=== PATIENT | female | born 1970 | race Caucasian/White ===

== ENCOUNTER 2021-04-02 08:53 | Inpatient (IN) ==
[2021-04-02] MEDS ORDERED: SODIUM CHLORIDE 0.9% 1000ML 1,000 ML IV ONE (09:14)
--- NOTE | 2021-04-02 09:26 | Emergency Department Note ---
History of Present Illness General Chief complaint: Constipation Stated complaint: CONSTIPATION, DIZZY Time Seen by Provider: 04/02/21 09:02 History of Present Illness Maximum Pain Intensity: 3 50-year-old female who presents to the emergency department with primary complaint of constipation. The patient reports that she has not had a bowel movement since last Saturday, which was hard in consistency. The patient reports that she will occasionally get constipation (approximately twice yearly). The patient reports that she usually takes magnesium citrate to purge the bowel, but has not done so at this point. She has tried Ex-Lax without any relief. In addition to complaint of constipation, the patient reports that she has also had some lightheadedness recently. She denies any chest pain, shortness of breath or palpitations. She does report a history of thyroid disease, but reports that her labs were normal approximately 2 months ago. The patient denies any significant recent weight gain or weight loss. She denies any urinary symptoms, fevers, chills, neck pain or headache. She denies history of vertigo, and denies sensation of the room spinning. Patient does not feel dehydrated, reporting that she drinks plenty of fluids throughout the day. 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 The patient currently denies any abdominal pain. Home Medications Medication Instructions Recorded Confirmed Type buprenorphine-naloxone 1 tab SUBLINGUAL BID 04/02/21 04/02/21 History levothyroxine 175 mcg PO QAM 04/02/21 04/02/21 History lisinopril 10 mg PO QAM 04/02/21 04/02/21 History Allergies Allergy/AdvReac Type Severity Reaction Status Date / Time No Known Allergies Allergy Verified 04/02/21 11:09 Past Med/Surg History Medical History Hypertension Throat cancer Surgical History History of appendectomy History of cholecystectomy History of tubal ligation Family History Other Diabetes Social History Smoking Status: Current every day smoker Tobacco Type: Cigarettes Cigarettes Per Day: 10-20; Second Hand Exposure: Yes; Do You Dip or Chew Tobacco: No; Tobacco Cessation Education Requested by Patient: Yes Hx Alcohol Use: Yes Hx Substance Use: No Preferred Language: [place] Citizen Communication Ability: Effective Carding 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 Operator Required: No Beliefs That Will Affect Care: None marital status: Single Current Living Situation: Other current occupational status: disabled Other Information That Helps Us Care for You: Yes Feels Safe at Home: Yes Assistive Devices: None Review of Systems 10 system review was performed and was negative except for pertinent positives a nd negatives as indicated in history of present illness Physical Exam Vital Signs Vital Signs - 24 hr 04/02/21 08:55 04/02/21 09:25 04/02/21 09:29 Temperature 36.6 C Temperature Source Temporal Artery Scan Pulse Rate - Lying Pulse Rate - Sitting Pulse Rate - Standing Pulse Rate 84 77 79 Pulse Rate from SpO2 Sensor 78 Pulse Rhythm Respiratory Rate 18 14 21 Respiratory Effort / Characteristics Non-Labored Spontaneous Respiratory Depth Normal Respiratory Pattern Regular Blood Pressure - Lying Blood Pressure - Sitting Blood Pressure- Standing Blood Pressure 104/76 95/61 L Blood Pressure Mean 85 72 Blood Pressure Position Sitting Pulse Oximetry 97 97 Oxygen Delivery Method Room Air Sepsis Recent Fever Within 48 Hours No Sepsis New/Unexplained Change in Mental Status N/A Sepsis Action Taken by Nursing No Action Required 04/02/21 09:30 04/02/21 09:47 04/02/21 09:57 Temperature Temperature Source Pulse Rate - Lying Pulse Rate - Sitting Pulse Rate - Standing Pulse Rate 76 75 69 Pulse Rate from SpO2 Sensor 75 75 67 Pulse Rhythm Respiratory Rate 21 30 H 13 Respiratory Effort / Characteristics Respiratory Depth Respiratory Pattern Blood Pressure - Lying Blood Pressure - Sitting Blood Pressure- Standing Blood Pressure 114/62 100/60 109/62 Blood Pressure Mean 79 73 77 Blood Pressure Position Pulse Oximetry 97 96 98 Oxygen Delivery Method Sepsis Recent Fever Within 48 Hours Sepsis New/Unexplained Change in Mental Status Sepsis Action Taken by Nursing 04/02/21 09:58 04/02/21 09:59 04/02/21 10:00 Temperature Temperature Source Pulse Rate - Lying Pulse Rate - Sitting Pulse Rate - Standing Pulse Rate 73 77 69 Pulse Rate from SpO2 Sensor 73 79 69 Pulse Rhythm Respiratory Rate 17 21 14 Respiratory Effort / Characteristics Respiratory Depth Respiratory Pattern Blood Pressure - Lying Blood Pressure - Sitting Blood Pressure- Standing Blood Pressure 98/59 L 96/61 L 107/62 Blood Pressure Mean 72 72 77 Blood Pressure Position Pulse Oximetry 97 96 99 Oxygen Delivery Method Sepsis Recent Fever Within 48 Hours Sepsis New/Unexplained Change in Mental Status Sepsis Action Taken by Nursing 04/02/21 10:02 04/02/21 10:03 04/02/21 10:30 Temperature Temperature Source Pulse Rate - Lying 71 Pulse Rate - Sitting 70 Pulse Rate - Standing 72 Pulse Rate 66 71 65 Pulse Rate from SpO2 Sensor 67 63 Pulse Rhythm Regular Respiratory Rate 19 18 14 Respiratory Effort / Characteristics Respiratory Depth Respiratory Pattern Blood Pressure - Lying 109/62 Blood Pressure - Sitting 98/59 L Blood Pressure- Standing 96/61 L Blood Pressure 107/61 Blood Pressure Mean 76 Blood Pressure Position Pulse Oximetry 98 98 99 Oxygen Delivery Method Room Air Sepsis Recent Fever Within 48 Hours Sepsis New/Unexplained Change in Mental Status Sepsis Action Taken by Nursing 04/02/21 11:00 04/02/21 11:01 04/02/21 11:35 Temperature Temperature Source Pulse Rate - Lying Pulse Rate - Sitting Pulse Rate - Standing Pulse Rate 62 73 92 H Pulse Rate from SpO2 Sensor 62 63 Pulse Rhythm Respiratory Rate 16 17 9 L Respiratory Effort / Characteristics Respiratory Depth Respiratory Pattern Blood Pressure - Lying Blood Pressure - Sitting Blood Pressure- Standing Blood Pressure 126/89 Blood Pressure Mean 101 Blood Pressure Position Pulse Oximetry 94 93 Oxygen Delivery Method Sepsis Recent Fever Within 48 Hours Sepsis New/Unexplained Change in Mental Status Sepsis Action Taken by Nursing 04/02/21 11:36 Temperature Temperature Source Pulse Rate - Lying Pulse Rate - Sitting Pulse Rate - Standing Pulse Rate 79 Pulse Rate from SpO2 Sensor Pulse Rhythm Respiratory Rate 15 Respiratory Effort / Characteristics Respiratory Depth Respiratory Pattern Blood Pressure - Lying Blood Pressure - Sitting Blood Pressure- Standing Blood Pressure 135/95 Blood Pressure Mean 108 Blood Pressure Position Pulse Oximetry Oxygen Delivery Method Sepsis Recent Fever Within 48 Hours Sepsis New/Unexplained Change in Mental Status Sepsis Action Taken by Nursing CONSTITUTIONAL: Healthy and well nourished. Alert and oriented X 3. GCS 15. Patient does not appear in any acute distress. HEENT: Normocephalic, atraumatic. Pupils equal, round and reactive. No scleral icterus or conjunctival injection/pallor. Ears and nares are clear. No nystagmus appreciated. Examination of the oropharynx shows dry mucous membranes. No posterior pharyngeal erythema, tonsillar hypertrophy or exudates. Patient is a dentulous without other oral lesions. NECK: No nuchal rigidity. RESPIRATORY: Clear to auscultation bilaterally with no wheezing, crackles, rhonchi or stridor. CARDIOVASCULAR: Regular rate and rhythm with no murmurs, rubs or gallops. GASTROINTESTINAL: Bowel sounds present in all quadrants. Abdomen is soft and nontender to palpation. No obvious hepatosplenomegaly. Negative CVA tenderness. Surgical incisions are noted from the patient's prior cholecystectomy and appendectomy. MUSCULOSKELETAL: Full range of motion of all joints without discomfort. No tenderness to palpation through the thoracolumbar spine or paraspinous muscles. No increased warmth to palpation, erythema or bogginess over the major joints. INTEGUMENTARY: No rash or other significant dermatologic conditions noted. HEMATOLOGIC: No ecchymosis or petechiae. PSYCHIATRIC: Positive affect. NEUROLOGIC: No focal neurologic deficits noted. Course Course Patient history and physical exam were performed. Nurses notes were reviewed. Vital signs were reviewed and were normal. IV access was established, and labs were drawn. The patient was hydrated with a liter normal saline. An ECG was performed, showing a normal sinus rhythm. The patient was placed on cardiac rehabilitation specialist while in the emergency department. Review of labs shows an elevated glucose of 322. The patient reports that she has never been diagnosed with diabetes in the past, but has a strong maternal family history of diabetes. Further review of labs shows an acute kidney injury with a creatinine of 1.78. Patient also has a bumped troponin of 0.054. TSH is also elevated at 36.5 with normal free T4. An abdomen obstruction series with the PA chest view shows a moderate fecal load without evidence for obstruction, abdominal free air or other pulmonary findings. Findings were discussed with Dr. Fontaine, ED attending physician, who also evaluated the patient, and recommends hospitalist evaluation. Findings were also discussed with the patient. As indicated previously, the patient denies personal history of diabetes. I also expressed my concern for her acute kidney injury as well, and recommended admission for further work-up. The patient was in agreement to do so. The case was then further discussed with the [facility] hospitalist service. Please see their dictation for further treatment and final disposition. Administered Medications Sodium Chloride (Nss) 500 mls @ 125 mls/hr IV .Q4H COLLIN Stop: 04/03/21 13:39 Last Admin: 04/02/21 14:41 Dose: 125 mls/hr Documented by: [id number] Insulin Aspart (Insulin Aspart 100 Units/Ml 3 Ml Pen) 0 units SC ACHS COLLIN; Protocol Stop: 05/02/21 14:14 Last Admin: 04/02/21 14:49 Dose: 1 units Documented by: [id number] Cosigned by: [id number] Nicotine (Nicotine 21 Mg/24 Hr Tdsy) 21 mg TD QAM COLLIN Stop: 05/02/21 13:59 Last Admin: 04/02/21 14:51 Dose: Not Given Documented by: [id number] Polyethylene Glycol (Polyethylene (Miralax) 17 Gm Pack) 17 gm PO DAILY COLLIN Stop: 05/02/21 13:39 Last Admin: 04/02/21 15:35 Dose: 17 gm Documented by: [id number] Discontinued Medications Sodium Chloride (Nss 1000ml) 1,000 mls @ 999 mls/hr IV .Q1H1M ONE Stop: 04/02/21 10:14 Last Infusion: 04/02/21 10:50 Dose: 0 mls/hr Documented by: [id number] Admin: 04/02/21 09:25 Dose: 999 mls/hr Documented by: [id number] Medical Decision Making Medical Records Attestation: I reviewed the patient's medical records. Home Medications Current Medication List: was personally reviewed by me Laboratory Data Attestation: I reviewed the patient's lab results. Result diagrams: 04/02/21 09:26 04/02/21 09:26 Lab Results 04/02/21 04/02/21 04/02/21 Range/Units 09:26 09:26 09:26 WBC 5.63 (4.8-10.8) K/uL RBC 4.03 L (4.2-5.4) M/uL Hgb 12.3 (12.0-16.0) g/dL Hct 36.8 L (37-47) % MCV 91.3 (80-100) fL MCH 30.5 (25-34) pg MCHC 33.4 (32-36) g/dL RDW Std Deviation 43.0 (36.4-46.3) fL RDW Coeff of Saman 12.7 (11.5-14.5) % Plt Count 154 (130-400) K/uL MPV 10.4 (7.4-10.4) fL Immature Gran % (Auto) 0.2 % Neut % (Auto) 72.4 % Lymph % (Auto) 18.3 % [place] % (Auto) 7.8 % Eos % (Auto) 1.1 % Baso % (Auto) 0.2 % Neut # (Auto) 4.08 (1.4-6.5) K/uL Lymph # (Auto) 1.03 L (1.2-3.4) K/uL [place] # (Auto) 0.44 (0.11-0.59) K/uL Eos # (Auto) 0.06 (0-0.5) K/uL Baso # (Auto) 0.01 (0-0.2) K/uL Immature Gran # (Auto) 0.01 (0.00-0.02) K/uL PT 10.6 (9.0-12.0) Seconds INR 1.0 (0.9-1.1) APTT 21.5 (21.0-31.0) Seconds PTT Ratio 0.8 D-Dimer 400 (0-500) ug/L FEU Sodium 135 L (136-145) mmol/L Potassium 4.0 (3.5-5.1) mmol/L Chloride 99 (98-107) mmol/L Carbon Dioxide 30 (21-32) mmol/L Anion Gap 6.0 (3-11) BUN 27 H (7-18) mg/dl Creatinine 1.78 H (0.6-1.2) mg/dl Est Cr Clr Drug Dosing 36.5 ml/min Est GFR ( Amer) 38.4 ml/min Est GFR (Non-Af Amer) 33.2 ml/min BUN/Creatinine Ratio 15.2 (10-20) Glucose 322 H* (70-99) mg/dl Calcium 9.5 (8.5-10.1) mg/dl Total Bilirubin 0.4 (0.2-1) mg/dl AST 10 L (15-37) U/L ALT 23 (12-78) U/L Alkaline Phosphatase 94 (45-117) U/L Troponin I 0.054 H* (0-0.045) ng/ml Total Protein 7.6 (6.4-8.2) gm/dl Albumin 3.8 (3.4-5.0) gm/dl Globulin 3.8 (2.5-4.0) gm/dl Albumin/Globulin Ratio 1.0 (0.9-2) Beta-Hydroxybutyric Acd 0.74 (0.2-2.81) mg/dl TSH 36.500 H (0.300-4.500) uIu/ml Free T4 0.90 (0.8-1.6) ng/dl Urine Color Urine Appearance (Clear) Urine pH (4.5-7.5) Ur Specific [place] (1.000-1.030) Urine Protein (Negative) Urine Glucose (UA) (Negative) Urine Ketones (Negative) Urine Blood (Negative) Urine Nitrite (Negative) Urine Bilirubin (Negative) Urine Urobilinogen (Negative) Ur Leukocyte Esterase (Negative) Urine WBC (Auto) (0-5) /hpf Urine RBC (Auto) (0-4) /hpf U Hyaline Cast (Auto) (0-5) /lpf U Epithel Cells (Auto) (0-5) /lpf Urine Bacteria (Auto) (Negative) Ur Renal Epithelial Cell POC Ur Test (NEG) Urine Opiates Screen (Neg) Ur Methadone, Qual (Neg) Urine Barbiturates (Neg) Ur Phencyclidine (PCP) (Neg) U Amphetamin/Meth Scrn (Neg) MDMA (Ecstasy) Screen (Neg) U Benzodiazepines Scrn (Neg) Ur Cocaine Metabolite (Neg) U Marijuana (THC) Screen (Neg) COVID-19 Eval Order SARS-CoV-2 (PCR) (Negative) 04/02/21 04/02/21 04/02/21 Range/Units 11:03 11:03 11:40 WBC (4.8-10.8) K/uL RBC (4.2-5.4) M/uL Hgb (12.0-16.0) g/dL Hct (37-47) % MCV (80-100) fL MCH (25-34) pg MCHC (32-36) g/dL RDW Std Deviation (36.4-46.3) fL RDW Coeff of Saman (11.5-14.5) % Plt Count (130-400) K/uL MPV (7.4-10.4) fL Immature Gran % (Auto) % Neut % (Auto) % Lymph % (Auto) % [place] % (Auto) % Eos % (Auto) % Baso % (Auto) % Neut # (Auto) (1.4-6.5) K/uL Lymph # (Auto) (1.2-3.4) K/uL [place] # (Auto) (0.11-0.59) K/uL Eos # (Auto) (0-0.5) K/uL Baso # (Auto) (0-0.2) K/uL Immature Gran # (Auto) (0.00-0.02) K/uL PT (9.0-12.0) Seconds INR (0.9-1.1) APTT (21.0-31.0) Seconds PTT Ratio D-Dimer (0-500) ug/L FEU Sodium (136-145) mmol/L Potassium (3.5-5.1) mmol/L Chloride (98-107) mmol/L Carbon Dioxide (21-32) mmol/L Anion Gap (3-11) BUN (7-18) mg/dl Creatinine (0.6-1.2) mg/dl Est Cr Clr Drug Dosing ml/min Est GFR ( Amer) ml/min Est GFR (Non-Af Amer) ml/min BUN/Creatinine Ratio (10-20) Glucose (70-99) mg/dl Calcium (8.5-10.1) mg/dl Total Bilirubin (0.2-1) mg/dl AST (15-37) U/L ALT (12-78) U/L Alkaline Phosphatase (45-117) U/L Troponin I (0-0.045) ng/ml Total Protein (6.4-8.2) gm/dl Albumin (3.4-5.0) gm/dl Globulin (2.5-4.0) gm/dl Albumin/Globulin Ratio (0.9-2) Beta-Hydroxybutyric Acd (0.2-2.81) mg/dl TSH (0.300-4.500) uIu/ml Free T4 (0.8-1.6) ng/dl Urine Color Yellow Urine Appearance Cloudy A (Clear) Urine pH 6.0 (4.5-7.5) Ur Specific [place] 1.014 (1.000-1.030) Urine Protein Trace H (Negative) Urine Glucose (UA) 1+ H (Negative) Urine Ketones Negative (Negative) Urine Blood Negative (Negative) Urine Nitrite Negative (Negative) Urine Bilirubin Negative (Negative) Urine Urobilinogen Negative (Negative) Ur Leukocyte Esterase Trace H (Negative) Urine WBC (Auto) 1-5 (0-5) /hpf Urine RBC (Auto) 0-4 (0-4) /hpf U Hyaline Cast (Auto) >30 H (0-5) /lpf U Epithel Cells (Auto) >30 H (0-5) /lpf Urine Bacteria (Auto) Negative (Negative) Ur Renal Epithelial Cell Not Reportable POC Ur Test (NEG) Urine Opiates Screen (Neg) Ur Methadone, Qual (Neg) Urine Barbiturates (Neg) Ur Phencyclidine (PCP) (Neg) U Amphetamin/Meth Scrn (Neg) MDMA (Ecstasy) Screen (Neg) U Benzodiazepines Scrn (Neg) Ur Cocaine Metabolite (Neg) U Marijuana (THC) Screen (Neg) COVID-19 Eval Order Covid19 at [facility] SARS-CoV-2 (PCR) NEGATIVE (Negative) 04/02/21 04/02/21 Range/Units 11:40 11:40 WBC (4.8-10.8) K/uL RBC (4.2-5.4) M/uL Hgb (12.0-16.0) g/dL Hct (37-47) % MCV (80-100) fL MCH (25-34) pg MCHC (32-36) g/dL RDW Std Deviation (36.4-46.3) fL RDW Coeff of Saman (11.5-14.5) % Plt Count (130-400) K/uL MPV (7.4-10.4) fL Immature Gran % (Auto) % Neut % (Auto) % Lymph % (Auto) % [place] % (Auto) % Eos % (Auto) % Baso % (Auto) % Neut # (Auto) (1.4-6.5) K/uL Lymph # (Auto) (1.2-3.4) K/uL [place] # (Auto) (0.11-0.59) K/uL Eos # (Auto) (0-0.5) K/uL Baso # (Auto) (0-0.2) K/uL Immature Gran # (Auto) (0.00-0.02) K/uL PT (9.0-12.0) Seconds INR (0.9-1.1) APTT (21.0-31.0) Seconds PTT Ratio D-Dimer (0-500) ug/L FEU Sodium (136-145) mmol/L Potassium (3.5-5.1) mmol/L Chloride (98-107) mmol/L Carbon Dioxide (21-32) mmol/L Anion Gap (3-11) BUN (7-18) mg/dl Creatinine (0.6-1.2) mg/dl Est Cr Clr Drug Dosing ml/min Est GFR ( Amer) ml/min Est GFR (Non-Af Amer) ml/min BUN/Creatinine Ratio (10-20) Glucose (70-99) mg/dl Calcium (8.5-10.1) mg/dl Total Bilirubin (0.2-1) mg/dl AST (15-37) U/L ALT (12-78) U/L Alkaline Phosphatase (45-117) U/L Troponin I (0-0.045) ng/ml Total Protein (6.4-8.2) gm/dl Albumin (3.4-5.0) gm/dl Globulin (2.5-4.0) gm/dl Albumin/Globulin Ratio (0.9-2) Beta-Hydroxybutyric Acd (0.2-2.81) mg/dl TSH (0.300-4.500) uIu/ml Free T4 (0.8-1.6) ng/dl Urine Color Urine Appearance (Clear) Urine pH (4.5-7.5) Ur Specific [place] (1.000-1.030) Urine Protein (Negative) Urine Glucose (UA) (Negative) Urine Ketones (Negative) Urine Blood (Negative) Urine Nitrite (Negative) Urine Bilirubin (Negative) Urine Urobilinogen (Negative) Ur Leukocyte Esterase (Negative) Urine WBC (Auto) (0-5) /hpf Urine RBC (Auto) (0-4) /hpf U Hyaline Cast (Auto) (0-5) /lpf U Epithel Cells (Auto) (0-5) /lpf Urine Bacteria (Auto) (Negative) Ur Renal Epithelial Cell POC Ur Test NEG (NEG) Urine Opiates Screen Neg (Neg) Ur Methadone, Qual Neg (Neg) Urine Barbiturates Neg (Neg) Ur Phencyclidine (PCP) Neg (Neg) U Amphetamin/Meth Scrn Pos H (Neg) MDMA (Ecstasy) Screen Pos H (Neg) U Benzodiazepines Scrn Neg (Neg) Ur Cocaine Metabolite Neg (Neg) U Marijuana (THC) Screen Neg (Neg) COVID-19 Eval Order SARS-CoV-2 (PCR) (Negative) Imaging Data Attestation: I personally reviewed and interpreted this imaging study as follows: My Impression: My interpretation of an abdomen obstruction series with a PA chest view shows moderate fecal load without obvious obstructive pattern, abdominal free air or other concerning pulmonary findings. Radiologist report was also reviewed. Radiologist's Impression: Chest/Abdomen X-ray 04/02/21 09:14 PA CHEST RADIOGRAPH AND UPRIGHT AND SUPINE AP RADIOGRAPHS OF THE ABDOMEN CLINICAL HISTORY: Constipation COMPARISON STUDY: Chest radiograph September 07, 2006. CT of the abdomen and pelvis May 09, 2011. FINDINGS: Lung volumes are normal. Lungs are clear. There is no pneumothorax or pleural effusion. Cardiac size is normal. Mediastinal contours are normal. There is no evidence for pulmonary edema. There is no free air. The bowel gas pattern is normal. There are cholecystectomy clips. Amount of stool within the colon and rectum is unremarkable. IMPRESSION: 1. No free air or evidence of bowel obstruction. 2. No acute cardiopulmonary findings. ACT 112: Negative or not required by law. Electronically signed by: Pj Navarrete M.D. 04/02/2021 11:41 AM Abdomen/Pelvis CT 04/02/21 10:47 CT SCAN OF THE ABDOMEN AND PELVIS WITHOUT CONTRAST CLINICAL HISTORY: Abd pain, SUREKHA COMPARISON STUDY: 05/09/2011 TECHNIQUE: CT scan of the abdomen and pelvis was performed from the lung bases to the proximal femurs. Images are reviewed in the axial, sagittal, and coronal planes. IV contrast was not administered for this examination. A dose lowering technique was utilized adhering to the principles of ALARA. CT DOSE: 467.65 mGy.cm FINDINGS: Lower chest: Mild atelectasis at the dependent portions of bilateral lower lobes. Heart is normal in size. Minimal fluid within the pericardial sac, likely physiologic. Liver: The unenhanced liver is normal in size, contour, and attenuation. There is no intrahepatic biliary ductal dilatation. Gallbladder: Surgically absent Spleen: Normal in size and attenuation. Pancreas: There is loss of normal pancreatic folia. No definite pancreatic lesions are seen. Minimal fat stranding surrounding pancreas might represent developing pancreatitis or normal variant. Adrenal glands: Nodular prominence of bilateral adrenal glands Kidneys: The unenhanced kidneys are normal in size without hydronephrosis. There is no contour deforming renal mass lesion. No renal calculi are identified. Bowel: The small bowel and colon are normal in course and caliber. Appendix is surgically absent. Moderate amount of stool is seen within ascending and transverse colon. Peritoneum: There is no intraperitoneal free air or abdominal ascites. Vasculature: The abdominal aorta is normal in course and caliber. Adenopathy: None. Pelvic viscera: The bladder, and pelvic viscera are unremarkable. Skeletal structures: Interval development of sclerotic lesions within right iliac bone and within L4 vertebral body. Previously seen sclerotic lesions within L5 and L2 are unchanged since prior. IMPRESSION: 1. Normal appearance of unenhanced kidneys. No hydronephrosis or nephrolithiasis is seen. 2. Questionable mild fat stranding surrounding pancreas which might represent normal variant or developing pancreatitis. Please correlate above-mentioned findings with clinical presentation of abdominal pain and laboratory data. 3. Interval development of few sclerotic osseous lesions since prior study performed in 2010. Please correlate above-mentioned findings was prior history of neoplastic process. ACT 112: Positive. There are findings on this exam that require communication between the performing entity and the patient following Patient Test Result Information Act ([place] Act 112) guidelines. The above report was generated using voice recognition software. It may contain grammatical, syntax or spelling errors. Electronically signed by: Susie Mcbride DO 04/02/2021 11:44 AM ECG Data Attestation: I personally reviewed and interpreted this ECG as follows: Indication: + other (Dizziness, constipation, elevated troponin) Rate (beats per minute): 68 Rhythm: + normal sinus ECG Intervals/blocks: + Normal QRS, + Normal QT and + Normal VT ECG [place]: + Normal Comparison ECG Date: from (03/10/2014) Change: the following changes noted (QT has lengthened) Blood Pressure Blood Pressure Findings: Normal blood pressure MDM Narrative Cardiac monitoring: An order was placed for continuous cardiac monitoring. The monitor shows a rate of 68 bpm with a normal sinus rhythm. security monitor history was reviewed throughout the evaluation, and no dysrhythmias were noted. Patient presents to the emergency department with primary complaint of constipation and lightheadedness. The patient reports that she has not had any productive stool output he had the past 6 days. She reports prior history of constipation that is usually well managed with magnesium citrate. The patient has not tried magnesium citrate prior to arrival to the emergency department. With today's work-up, I suspect that the patient has new onset diabetes with a random glucose of 322. A1c is currently pending. The patient also has evidence for acute kidney injury with a creatinine of 1.78. The patient was also found to have an elevated troponin, and will require serial ECGs and troponin levels. Patient also has a history of hypothyroidism, however admits that she has not taken her levothyroxine for greater than 6 months. At this point, patient has a normal D-dimer and PERC score, therefore I do not suspect pulmonary embolus. Additional laboratory studies are not suggestive of pancreatitis, cholecystitis, hepatitis or UTI. Urine drug screen was positive for methamphetamines and ecstasy. At this point, I do feel that the patient warrants admission with the above medical conditions. Impression & Plan Acute kidney injury, New onset type 2 diabetes mellitus, Lightheadedness, Elevated troponin, Hypothyroidism, Constipation Discharge Plan Visit Data Chief Complaint: Constipation Stated Complaint: CONSTIPATION, DIZZY ED Provider: Issac Fontaine ED Midlevel Provider: Robby Ron Discharge Problem: Acute kidney injury, New onset type 2 diabetes mellitus, Lightheadedness, Elevated troponin, Hypothyroidism, Constipation Patient Disposition: Admitted As Inpatient Discharge Instructions Interventions: ED Discharge Assessment Last Done: 04/02/21 13:14 Discharge Problem: Hypothyroidism Qualifiers: Hypothyroidism type: unspecified Qualified Code(s): E03.9 - Hypothyroidism, unspecified Constipation Qualifiers: Constipation type: unspecified constipation type Qualified Code(s): K59.00 - Constipation, unspecified
[2021-04-02 09:54] LABS: Basophils # (auto) 0.01 K/uL (0-0.2); Basophils % (auto) 0.2 %; Eosinophils # (auto) 0.06 K/uL (0-0.5); Eosinophils % (auto) 1.1 %; Hematocrit (blood only) 36.8 % (37-47); Hemoglobin 12.3 g/dL (12.0-16.0); Immature Granulocytes # (auto) 0.01 K/uL (0.00-0.02); Immature Granulocytes % (auto) 0.2 %; Lymphocytes # (auto) 1.03 K/uL (1.2-3.4); Lymphocytes % (auto) 18.3 %; Mean Corpuscular Hemoglobin 30.5 pg (25-34); Mean Corpuscular Hgb Conc 33.4 g/dL (32-36); Mean Corpuscular Volume 91.3 fL (80-100); Mean Platelet Volume 10.4 fL (7.4-10.4); Monocytes # (auto) 0.44 K/uL (0.11-0.59); Monocytes % (auto) 7.8 %; Neutrophils # (auto) 4.08 K/uL (1.4-6.5); Neutrophils % (auto) 72.4 %; Platelet Count 154 K/uL (130-400); RDW Coefficient of Variation 12.7 % (11.5-14.5); Red Blood Count 4.03 M/uL (4.2-5.4); White Blood Count 5.63 K/uL (4.8-10.8)
[2021-04-02 10:08] LABS: D Dimer 400 ug/L FEU (0-500); Partial Thromboplastin Ratio 0.8; Partial Thromboplastin Time 21.5 Seconds (21.0-31.0); Prothrombin Time 10.6 Seconds (9.0-12.0)
[2021-04-02 10:19] LABS: Albumin Level 3.8 gm/dl (3.4-5.0); BUN Creatinine Ratio 15.2 (10-20); Calcium 9.5 mg/dl (8.5-10.1); Creatinine Clr Calc Pharmacy 36.5 ml/min; Est GFR (African American) 38.4 ml/min; Est GFR (Non-African American) 33.2 ml/min
[2021-04-02 10:41] LABS: Beta-Hydroxybutyrate 0.74 mg/dl (0.2-2.81); Bilirubin,Total 0.4 mg/dl (0.2-1); Globulin 3.8 gm/dl (2.5-4.0); Thyroid Stimulating Hormone 36.5 uIu/ml (0.300-4.500); Total Protein 7.6 gm/dl (6.4-8.2); Troponin I 0.054 ng/ml (0-0.045)
[2021-04-02 10:58] LABS: T4 Free Thyroxine 0.9 ng/dl (0.8-1.6)
--- NOTE | 2021-04-02 11:18 | Emergency Department Note ---
ED Visit Note The patient was seen and examined with shahrzad. I agree with the history, physical and findings. Please see the note for disposition and details. .
--- NOTE | 2021-04-02 11:42 | XRay Report ---
PA CHEST RADIOGRAPH AND UPRIGHT AND SUPINE AP RADIOGRAPHS OF THE ABDOMEN CLINICAL HISTORY: Constipation COMPARISON STUDY: Chest radiograph September 07, 2006. CT of the abdomen and pelvis May 09, 2011. FINDINGS: Lung volumes are normal. Lungs are clear. There is no pneumothorax or pleural effusion. Ca rdiac size is normal. Mediastinal contours are normal. There is no evidence for pulmonary edema. Ther e is no free air. The bowel gas pattern is normal. There are cholecystectomy clips. Amount of stool w ithin the colon and rectum is unremarkable. IMPRESSION: 1. No free air or evidence of bowel obstruction. 2. No acute cardiopulmonary findings. ACT 112: Negative or not required by law. Electronically signed by: Pj Navarrete M.D. 04/02/2021 11:41 AM
--- NOTE | 2021-04-02 11:45 | CT Scan Report ---
CT SCAN OF THE ABDOMEN AND PELVIS WITHOUT CONTRAST CLINICAL HISTORY: Abd pain, SUREKHA COMPARISON STUDY: 05/09/2011 TECHNIQUE: CT scan of the abdomen and pelvis was performed from the lung bases to the proximal femurs . Images are reviewed in the axial, sagittal, and coronal planes. IV contrast was not administered fo r this examination. A dose lowering technique was utilized adhering to the principles of ALARA. CT DOSE: 467.65 mGy.cm FINDINGS: Lower chest: Mild atelectasis at the dependent portions of bilateral lower lobes. Heart is normal in size. Minimal fluid within the pericardial sac, likely physiologic. Liver: The unenhanced liver is normal in size, contour, and attenuation. There is no intrahepatic marina iary ductal dilatation. Gallbladder: Surgically absent Spleen: Normal in size and attenuation. Pancreas: There is loss of normal pancreatic folia. No definite pancreatic lesions are seen. Minimal fat stranding surrounding pancreas might represent developing pancreatitis or normal variant. Adrenal glands: Nodular prominence of bilateral adrenal glands Kidneys: The unenhanced kidneys are normal in size without hydronephrosis. There is no contour deform ing renal mass lesion. No renal calculi are identified. Bowel: The small bowel and colon are normal in course and caliber. Appendix is surgically absent. Mod erate amount of stool is seen within ascending and transverse colon. Peritoneum: There is no intraperitoneal free air or abdominal ascites. Vasculature: The abdominal aorta is normal in course and caliber. Adenopathy: None. Pelvic viscera: The bladder, and pelvic viscera are unremarkable. Skeletal structures: Interval development of sclerotic lesions within right iliac bone and within L4 vertebral body. Previously seen sclerotic lesions within L5 and L2 are unchanged since prior. IMPRESSION: 1. Normal appearance of unenhanced kidneys. No hydronephrosis or nephrolithiasis is seen. 2. Questionable mild fat stranding surrounding pancreas which might represent normal variant or deve loping pancreatitis. Please correlate above-mentioned findings with clinical presentation of abdomina l pain and laboratory data. 3. Interval development of few sclerotic osseous lesions since prior study performed in 2010. Please correlate above-mentioned findings was prior history of neoplastic process. ACT 112: Positive. There are findings on this exam that require communication between the performing entity and the patient following Patient Test Result Information Act ([place] Act 112) guidelines. The above report was generated using voice recognition software. It may contain grammatical, syntax o r spelling errors. Electronically signed by: Susie Mcbride DO 04/02/2021 11:44 AM
[2021-04-02 11:52] LABS: Appearance Urine Cloudy (Clear); Bacteria Urine Automated Negative (Negative); Bilirubin Urine Negative (Negative); Blood Urine Negative (Negative); Color Urine Yellow; Epithelial Cell Urine Auto >30 /lpf (0-5); Glucose Urine UA 1+ (Negative); Ketones Urine Negative (Negative); Leukocyte Esterase Urine Trace (Negative); Nitrite Urine Negative (Negative); Protein Urine Trace (Negative); RBC Urine Automated 0-4 /hpf (0-4); Specific Gravity Urine 1.014 (1.000-1.030); Urobilinogen Urine Negative (Negative)
--- NOTE | 2021-04-02 11:54 | History & Physical Report ---
Date of Service April 02, 2021 Assessment & Plan (1) Constipation: - Admit to med surg with tele - Presented with abdominal complaints, no bowel movement x6 days -Start on daily Colace, MiraLAX and Dulcolax as needed, has not been taking outpatient [id number] medications to help. -Encouraged change in diet with more fruits and vegetables after discharge (2) Narcotic abuse in remission: -Taking buprenorphine-naloxone replacement x2 years -History of use of oral narcotics began after her throat cancer, chemotherapy and radiation. -Encouraged cessation from illicit drug use, patient denies using illicit drugs -Tox screen in ER notes positive amphetamines and ecstasy, question if this is a crossover from her replacement therapy? (3) New onset type 2 diabetes mellitus: -Glucose of 322 on admission, A1c is pending -Patient reports mother and maternal grandmother both have diabetes, uncle with diabetes -Heart healthy/diabetic diet -ISS with Accu-Cheks ACHS -Diet and exercise modification and lifestyle changes encouraged at bedside -Glycemic pharmacy consulted -clinical document improvement educator consulted (4) Acute kidney injury: Creatinine is acutely bumped at 1.78, NSS at 125 mL/h x 1 day -Follow with a.m. labs -Avoid nephrotoxins, and renally dose medications -Patient reports taking lisinopril as outpatient intermittently, would consider discontinuing on DC pending kidney function improved based off of patient compliance. (5) Elevated troponin: - Trend cardiac biomarkers, initial 0.054 - EKG reviewed as above, no ST wave changes or signs of inversions, QTC prolongation - Check 2 D echo - PT/OT consulted -Likely demand ischemia secondary to dehydration and SUREKHA as above, patient does not have any chest pain or pressure therefore ACS is highly unlikely at this time (6) Hypertension: - Hx of such, holding lisinopril as above -BP has been stable in the low 100s, currently 117/67 -She is clinically dehydrated currently, replacing IV fluids, monitor (7) Hypothyroidism: -TSH of 36.5, free T4 0.9, patient admits to not taking levothyroxine for greater than 6 months, will resume 175 mcg daily, discussed with the patient at bedside about the 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 (8) Obesity (BMI 30.0-34.9): -BMI of 32.4, diet and exercise encouraged as above (9) Throat cancer: - History of right tonsillar squamous cell carcinoma in 2013, status post radiation and chemotherapy, no longer follows with oncology (10) Tobacco dependence due to cigarettes: -Nicotine patch ordered, patient initially denied, available if she changes her mind -Cessation encouraged at bedside. Patient was counseled on new onset diabetes being microvascular disease and how smoking would contribute to this disease process. She expressed understanding. Consider discharging with prescription for Chantix if she would be agreeable. (11) DVT prophylaxis: - teds, SCDs CODE: Full code Dispo: From home, likely to remain in the hospital x 1-2 days History of Present Illness Primary Care Provider: Leodan Estrada DO This is a 50-year-old female with past medical history of hypothyroidism, HTN, COPD, narcotic dependence history currently on buprenorphine-naloxone, and right tonsillar squamous cell carcinoma in 2013 in remission. She presents to the ER with acute abdominal pain, and states that she has not had a bowel movement since last Saturday, 6 days ago. She tried taking a friend's Linzess tablet early last week however it only caused abdominal cramping and did not produce a bowel movement. She has not taken any fiber, stool softeners or other medication [id number]. She has been trying to drink a lot but reports that her salivary glands in her mouth do not produce very much spit since having tonsillar cancer in 2013. She admits that she has not been taking levothyroxine for over 6 months. She is only using her buprenorphine naloxone replacement routinely, has been on it x2 years. Patient reports her history of drug use started after cancer and being addicted to pain medications after chemo and radiation. She denies illicit drug and reports never using IV drugs. Her drug tox screen is positive for amphetamines and ecstasy, she further denies any recent drug use. In regards to her lisinopril, she takes this intermittently when she "feels like her blood pressure is high". She reports having increased lightheadedness with standing in the past week. She has been attempting to drink more fluids including Gatorade and water. Patient reports her diet is lacking fruits and vegetables and meats due to difficulty chewing them, and eats a lot of things with carbohydrates and sugar. She smokes 1 pack of cigarettes daily and has for past 30 years. She does not require supplemental oxygen and does not use any inhalers as prescribed per her [facility] chart review. She denies need for nicotine patch. Patient denies alcohol use for over 10 years. She lives at home with her boyfriend. Currently employed at [employer] in [place]. The patient denies any chest pain, pressure, palpitations or syncopal episodes. She walks without any difficulty at baseline. Patient was found to have an elevated troponin of 0.054, creatinine 1.78, TSH 36 with normal T4 and a glucose of 322. CT of the abdomen showed moderate stool burden. EKG appears NSR, no ST wave inversions, but has prolonged QTC. Allergies Allergy/AdvReac Type Severity Reaction Status Date / Time No Known Allergies Allergy Verified 04/02/21 11:09 Home Medications Medication Instructions Recorded Confirmed Type buprenorphine-naloxone 1 tab SUBLINGUAL BID 04/02/21 04/02/21 History levothyroxine 175 mcg PO QAM 04/02/21 04/02/21 History lisinopril 10 mg PO QAM 04/02/21 04/02/21 History Past Med/Surg History Medical History Hypertension Throat cancer Surgical History History of appendectomy History of cholecystectomy History of tubal ligation Family History Other Diabetes Social History Smoking Status: Current every day smoker Tobacco Type: Cigarettes Cigarettes Per Day: 10-20; Second Hand Exposure: Yes; Do You Dip or Chew Tobacco: No; Tobacco Cessation Education Requested by Patient: Yes Hx Alcohol Use: Yes Hx Substance Use: No Preferred Language: Tajik Communication Ability: Effective Plumber Assistant Required: No Beliefs That Will Affect Care: None marital status: Single Current Living Situation: Other current occupational status: disabled Other Information That Helps Us Care for You: Yes Feels Safe at Home: Yes Assistive Devices: None Review of Systems Review of Systems: Constitutional: No fever, sweats or chills, + lightheadedness with standing sometimes Eyes: No diplopia, no worsening or blurred vision ENT: normal hearing, + trouble swallowing, as per HPI. Respiratory: No cough, sputum, dyspnea at rest or on exertion, + smokes Cardiovascular: No chest pain, tightness or palpitations Abdomen: No pain, nausea, vomiting, diarrhea, + constipation, last BM 6 days ago Musculoskeletal: No joint pain, calf pain, swelling Neurologic: No weakness, numbness/tingling, or balance problems Psychiatric: No anxiety or depression Skin: No rash or itch Physical Exam Physical Exam: General: awake, alert, no apparent distress, + obese with BMI of 32 Head: Normocephalic, atraumatic ENT: PERRL, EOMI, no pharyngeal exudate, mucous membranes dry, + partial upper plate Chest: Slightly diminished throughout, on room air, no adventitious breath sounds Cardiac: Regular rate and rhythm, no murmur, no JVD, normal peripheral pulses, good capillary refill Abdominal: NABS x 4 quadrants, soft, no tympany, nondistended, nontender to palpation, no rebound or guarding Extremities: Normal inspection, no peripheral edema or erythema, calfs nontender to palpation Psych: Normal mood and affect Neuro: AAO x 3, strength intact bilaterally and rated 5/5, no motor deficits, speech is clear, no peripheral sensory deficits Results & Data Results & Data ([facility]) Vital Signs (Past 12 Hours) Vital Signs Temp Pulse Resp BP Pulse Ox 04/02/21 10:03 71 18 98 04/02/21 08:55 36.6 C 84 18 104/76 97 Diagnostic Findings Chest/Abdomen X-ray 04/02/21 09:14 PA CHEST RADIOGRAPH AND UPRIGHT AND SUPINE AP RADIOGRAPHS OF THE ABDOMEN CLINICAL HISTORY: Constipation COMPARISON STUDY: Chest radiograph September 07, 2006. CT of the abdomen and pelvis May 09, 2011. FINDINGS: Lung volumes are normal. Lungs are clear. There is no pneumothorax or pleural effusion. Cardiac size is normal. Mediastinal contours are normal. There is no evidence for pulmonary edema. There is no free air. The bowel gas pattern is normal. There are cholecystectomy clips. Amount of stool within the colon and rectum is unremarkable. IMPRESSION: 1. No free air or evidence of bowel obstruction. 2. No acute cardiopulmonary findings. ACT 112: Negative or not required by law. Electronically signed by: Pj Navarrete M.D. 04/02/2021 11:41 AM Abdomen/Pelvis CT 06/06/21 10:47 CT SCAN OF THE ABDOMEN AND PELVIS WITHOUT CONTRAST CLINICAL HISTORY: Abd pain, SUREKHA COMPARISON STUDY: 05/09/2011 TECHNIQUE: CT scan of the abdomen and pelvis was performed from the lung bases to the proximal femurs. Images are reviewed in the axial, sagittal, and coronal planes. IV contrast was not administered for this examination. A dose lowering technique was utilized adhering to the principles of ALARA. CT DOSE: 467.65 mGy.cm FINDINGS: Lower chest: Mild atelectasis at the dependent portions of bilateral lower lobes. Heart is normal in size. Minimal fluid within the pericardial sac, likely physiologic. Liver: The unenhanced liver is normal in size, contour, and attenuation. There is no intrahepatic biliary ductal dilatation. Gallbladder: Surgically absent Spleen: Normal in size and attenuation. Pancreas: There is loss of normal pancreatic folia. No definite pancreatic lesions are seen. Minimal fat stranding surrounding pancreas might represent developing pancreatitis or normal variant. Adrenal glands: Nodular prominence of bilateral adrenal glands Kidneys: The unenhanced kidneys are normal in size without hydronephrosis. There is no contour deforming renal mass lesion. No renal calculi are identified. Bowel: The small bowel and colon are normal in course and caliber. Appendix is surgically absent. Moderate amount of stool is seen within ascending and transverse colon. Peritoneum: There is no intraperitoneal free air or abdominal ascites. Vasculature: The abdominal aorta is normal in course and caliber. Adenopathy: None. Pelvic viscera: The bladder, and pelvic viscera are unremarkable. Skeletal structures: Interval development of sclerotic lesions within right iliac bone and within L4 vertebral body. Previously seen sclerotic lesions within L5 and L2 are unchanged since prior. IMPRESSION: 1. Normal appearance of unenhanced kidneys. No hydronephrosis or nephrolithiasis is seen. 2. Questionable mild fat stranding surrounding pancreas which might represent normal variant or developing pancreatitis. Please correlate above-mentioned findings with clinical presentation of abdominal pain and laboratory data. 3. Interval development of few sclerotic osseous lesions since prior study performed in 2010. Please correlate above-mentioned findings was prior history of neoplastic process. ACT 112: Positive. There are findings on this exam that require communication between the performing entity and the patient following Patient Test Result Information Act ([place] Act 112) guidelines. The above report was generated using voice recognition software. It may contain grammatical, syntax or spelling errors. Electronically signed by: Susienaila McbrideDO 04/02/2021 11:44 AM ECG Additional Comments: Test Reason : Blood Pressure : / mmHG Vent. Rate : 068 BPM Atrial Rate : 068 BPM P-R Int : 136 ms QRS Dur : 072 ms QT Int : 458 ms P-R-T Axes : 007 035 039 degrees QTc Int : 487 ms Poor data quality, interpretation may be adversely affected Normal sinus rhythm Normal ECG When compared with ECG of 10-MAR-2014 14:48, Nonspecific T wave abnormality, improved in Anterior leads QT has lengthened Confirmed by Dane Dixon ([id number]) on 04/02/2021 12:50:23 PM Code Status & VTE Plan Code Status Full - discussed with patient at bedside Supervising Physician Co-Signing Physician Notes Patient is a 50-year-old female with history of hypothyroidism, hypertension, COPD, squamous cell carcinoma of the right tonsil S/P surgery and other medical problems presents with history of abdominal pain, constipation since 1 week duration. She admits to being noncompliant with levothyroxine medication as prescribed. She also states having dizziness intermittently. Patient is on buprenorphine-naloxone for many years. Please review HPI for complete details of presentation. Patient denies any chest pain, dyspnea, nausea, vomiting. CT abdomen showed's findings suggestive of possible developing pancreatitis. Moderate amount of stool seen within the ascending and transverse colon. Incidentally also noted few sclerotic osseous lesions within the right iliac bon e and L4 vertebral body. She was noted to have hyperglycemia with elevated blood glucose levels 322, denies any known history of being diabetic. SUREKHA, with creatinine elevation at 1.78. TSH elevated at 36.5, normal free T4. Mild troponin elevation at 0.054. EKG showed no signs of acute ischemia. On exam patient is moderately built and nourished, no apparent distress, normocephalic atraumatic,+ postsurgical, lungs- normal breath sounds, clear to auscultation, S1-S2, no murmur, no pedal edema, abdomen soft, nontender, normal bowel sounds, alert, awake, oriented, grossly no focal deficits. Patient is admitted for management of SUREKHA, new onset diabetes mellitus, constipation, hypothyroidism due to medication noncompliance, incidental sclerotic lesions. Agree with IV fluids, holding lisinopril, avoid nephrotoxic agents as able. Monitor renal function. Will give bowel regimen to help with constipation. Will restart levothyroxine, counseled on medication compliance. Will check lipase levels and monitor clinically for possible pancreatitis. Sclerotic bony lesions, further work-up as outpatient. Will start on insulin sliding scale, monitor blood glucose levels and obtain HbA1c. Will trend cardiac enzymes, check resting echo and repeat EKG in the morning to rule out any ACS. Counseled to quit tobacco use. I personally reviewed the record. Patient is interviewed and examined at bedside. Patient's care is coordinated with Chery Yin PA-C. Please refer to the documentation above for details of patient's presentation and for discussion of other issues.
[2021-04-02 12:10] LABS: Amphetamines+Metham, Urine Pos (Neg); Barbiturates, Urine Neg (Neg); Benzodiazepine, Urine Neg (Neg); Cocaine, Urine Neg (Neg); MDMA (Ecstacy), Urine Pos (Neg); Methadone, Urine Neg (Neg); Opiate, Urine Neg (Neg); Phencyclidine, Urine Neg (Neg)
--- NOTE | 2021-04-02 12:50 | Electrocardiogram Report ---
Test Reason : Blood Pressure : / mmHG Vent. Rate : 068 BPM Atrial Rate : 068 BPM P-R Int : 136 ms QRS Dur : 072 ms QT Int : 458 ms P-R-T Axes : 007 035 039 degrees QTc Int : 487 ms Poor data quality, interpretation may be adversely affected Normal sinus rhythm Normal ECG When compared with ECG of 10-MAR-2014 14:48, Nonspecific T wave abnormality, improved in Anterior leads QT has lengthened Confirmed by Dane Dixon ([id number]) on 04/02/2021 12:50:23 PM Referred By: REFERRED SELF Confirmed By:Dane Dixon
[2021-04-02 12:54] LABS: Cast Urine Automated >30 /lpf (0-5)
[2021-04-02] MEDS ORDERED: bisacodyL 5 MG TABEC PO PRN (13:40)
[2021-04-02] MEDS ORDERED: GLUCOSE 10 TABS/TUBE PO PRN (13:40)
[2021-04-02] MEDS ORDERED: CARBOHYDRATES FOR HYPOGLYCEMIA PO PRN (13:40)
[2021-04-02] MEDS ORDERED: GLUCAGON FOR INJ 1 MG VIAL SQ PRN (13:40)
[2021-04-02] MEDS ORDERED: DEXTROSE 50% 50 ML SYRINGE IV PRN (13:40)
[2021-04-02] MEDS ORDERED: bisacodyL 10 MG SUPP PR PRN (13:51)
[2021-04-02] MEDS ORDERED: PHARMACY GLYCEMIC MGMT CONSULT SCH (13:59)
--- NOTE | 2021-04-02 14:13 | Pharmacy Report ---
Pharmacy Glycemic Short Note 2 - Date of Service April 02, 2021 - Glycemic Short BSG Results (Last 24 hours): 04/02/21 09:26 Glucose 322 H* OUTPATIENT ANTIDIABETIC REGIMEN: * N/A ASSESSMENT: * 50 year old female admitted with constipation, hyperglycemia/ new onset Type 2 DM, PMH of hypothyroidism, HTN, COPD, narcotic dependence history currently on buprenorphine-naloxone, and right tonsillar squamous cell carcinoma in 2012 in remission. * Blood sugar 322mg/dl in ER, will begin patient on weight based basal bolus insulin therapy and titrate to goal blood sugar * A1c pending, CDE consult PLAN FOR INPATIENT GLYCEMIC CONTROL: * Basal insulin * Lantus 10 units SQ BID (hold for BSG < 140mg/dl) * Bolus insulin * NovoLog per scale ACHS or Q6hrs while NPO and overnight tonight at 0000 and 0400 * Goal Range: Low 110 mg/dL - High 140 mg/dL * Correction Factor: 30 mg/dL/unit * Nutritional / Prandial insulin per carb ratio of 1 unit per 10 grams CHO consumed PLAN FOR DISCHARGE: * to be determined
[2021-04-02] MEDS: SODIUM CHLORIDE 0.9% 500 ML IV SCH ×3 (14:41→22:29)
[2021-04-02] MEDS: INSULIN ASPART 100 UNITS/ML 3 ML PEN SC SCH ×4 (14:49→20:45)
[2021-04-02] MEDS: NICOTINE 21 MG/24 HR TDSY TD SCH (14:51)
[2021-04-02] MEDS: POLYETHYLENE (MIRALAX) 17 GM PACK PO SCH (15:35)
[2021-04-02] MEDS: INSULIN GLARGINE SOLOSTAR 100 UNITS/ML 3 ML PEN SC SCH ×2 (15:36→20:45)
[2021-04-02] MEDS ORDERED: PNEUMOCOCCAL Polysaccharide Vaccine 25mcg/0.5mL vial/Syr IM ONE (17:00)
[2021-04-02 17:30] LABS: Troponin I 0.054 ng/ml (0-0.045)
[2021-04-02] MEDS: DOCUSATE SODIUM 100 MG CAP PO SCH (20:42)
[2021-04-02] MEDS: HEPARIN SOD 5,000 UNIT/0.5 ML VIAL SQ SCH (20:43)
[2021-04-02] MEDS: BUPRENORPHINE/NALOXONE 8/2 MG TAB SL SCH (20:43)
[2021-04-02] MEDS ORDERED: MELATONIN 3 MG TAB PO PRN (22:13)
[2021-04-02] MEDS: SODIUM CHLORIDE 0.9% 1,000 ML IV SCH (22:32)
[2021-04-03] MEDS: INSULIN ASPART 100 UNITS/ML 3 ML PEN SC SCH ×6 (00:20→20:39)
[2021-04-03 02:43] LABS: Hematocrit (blood only) 33.9 % (37-47); Hemoglobin 11.3 g/dL (12.0-16.0); Mean Corpuscular Hemoglobin 30.6 pg (25-34); Mean Corpuscular Hgb Conc 33.3 g/dL (32-36); Mean Corpuscular Volume 91.9 fL (80-100); Platelet Count 102 K/uL (130-400); RDW Coefficient of Variation 12.8 % (11.5-14.5); RDW Standard Deviation 43.2 fL (36.4-46.3); Red Blood Count 3.69 M/uL (4.2-5.4); White Blood Count 4.17 K/uL (4.8-10.8)
[2021-04-03 02:44] LABS: Mean Platelet Volume 11.8 fL (7.4-10.4)
[2021-04-03 03:31] LABS: Alanine Aminotransferase 19 U/L (12-78); Aspartate Aminotransferase 10 U/L (15-37); BUN Creatinine Ratio 27.2 (10-20); Blood Urea Nitrogen 24 mg/dl (7-18); Calcium 8.4 mg/dl (8.5-10.1); Carbon Dioxide 27 mmol/L (21-32); Chloride 108 mmol/L (98-107); Est GFR (African American) 91.3 ml/min; Est GFR (Non-African American) 78.8 ml/min; Glucose 178 mg/dl (70-99); Lipase 158 U/L (73-393); Magnesium 1.6 mg/dl (1.8-2.4); Potassium 3.9 mmol/L (3.5-5.1); Sodium 141 mmol/L (136-145)
[2021-04-03 03:38] LABS: Albumin Globulin Ratio 0.9 (0.9-2); Alkaline Phosphatase 77 U/L (45-117); Bilirubin,Total 0.2 mg/dl (0.2-1); Globulin 3.3 gm/dl (2.5-4.0); Phosphorus 3.3 mg/dl (2.5-4.9); Total Protein 6.3 gm/dl (6.4-8.2); Troponin I 0.048 ng/ml (0-0.045)
[2021-04-03] MEDS: LEVOTHYROXINE SODIUM 175 MCG TABLET PO SCH (05:55)
[2021-04-03] MEDS: SODIUM CHLORIDE 0.9% 1,000 ML IV SCH (06:35)
[2021-04-03 07:31] LABS: Estimated Average Glucose 209 mg/dl; Hemoglobin A1C 8.9 % (4.5-5.6)
[2021-04-03] MEDS ORDERED: PATIENT'S WEIGHT NEEDED STA (07:31)
[2021-04-03] MEDS: DOCUSATE SODIUM 100 MG CAP PO SCH ×2 (07:51→20:41)
[2021-04-03] MEDS: BUPRENORPHINE/NALOXONE 8/2 MG TAB SL SCH ×2 (07:51→20:41)
[2021-04-03] MEDS: HEPARIN SOD 5,000 UNIT/0.5 ML VIAL SQ SCH ×2 (07:51→20:41)
[2021-04-03] MEDS: NICOTINE 21 MG/24 HR TDSY TD SCH (07:52)
[2021-04-03] MEDS: POLYETHYLENE (MIRALAX) 17 GM PACK PO SCH (07:53)
[2021-04-03] MEDS ORDERED: MAGNESIUM SULFATE / D5W 1 GM/100 ML BAG IV ONE (09:00)
[2021-04-03] MEDS ORDERED: INSULIN GLARGINE SOLOSTAR 100 UNITS/ML 3 ML PEN SC SCH (09:00)
--- NOTE | 2021-04-03 14:40 | Pharmacy Report ---
Pharmacy Glycemic Short Note 2 - Date of Service April 03, 2021 - Glycemic Short BSG Results (Last 24 hours): 04/02/21 04/02/21 04/02/21 14:39 16:46 19:59 Glucose POC Glucose 168 H 134 H 204 H 04/03/21 04/03/21 04/03/21 00:18 02:26 03:49 Glucose 178 H POC Glucose 252 H 176 H 04/03/21 04/03/21 07:42 11:33 Glucose POC Glucose 159 H 181 H OUTPATIENT ANTIDIABETIC REGIMEN: * N/A * HbA1c: 8.9% (04/02/21) ASSESSMENT: 04/03/21: * Pt received 29 units of insulin yesterday (20 units basal, 9 units bolus). * Fasting BSG was reasonable this morning (159mg/dL), so Lantus 20 units daily was ordered. Will adjust as necessary. * Novolog does not appear to be providing quite enough coverage, so carb ratio tightened slightly this afternoon. 04/02 * 50 year old female admitted with constipation, hyperglycemia/ new onset Type 2 DM, PMH of hypothyroidism, HTN, COPD, narcotic dependence history currently on buprenorphine-naloxone, and right tonsillar squamous cell carcinoma in 2012 in remission. * Blood sugar 322mg/dl in ER, will begin patient on weight based basal bolus insulin therapy and titrate to goal blood sugar * A1c pending, CDE consult PLAN FOR INPATIENT GLYCEMIC CONTROL: * Basal insulin * Lantus 20 units SQ daily * Bolus insulin * NovoLog per scale ACHS or Q6hrs while NPO and overnight tonight at 0000 and 0400 * Goal Range: Low 110 mg/dL - High 140 mg/dL * Correction Factor: 30 mg/dL/unit * Nutritional / Prandial insulin per carb ratio of 1 unit per 9 grams CHO consumed PLAN FOR DISCHARGE: * to be determined
--- NOTE | 2021-04-03 15:55 | Hospitalist Progress Note ---
Date of Service April 03, 2021 Assessment & Plan (1) Constipation: Constipation Suspected pancreatitis--Less likely -CT ABD: Normal appearance of unenhanced kidneys. No hydronephrosis or nephrolithiasis is seen. Questionable mild fat stranding surrounding pancreas which might represent normal variant or developing pancreatitis. Please correlate above-mentioned findings with clinical presentation of abdominal pain and laboratory data. Interval development of few sclerotic osseous lesions since prior study performed in 2010. Please correlate above-mentioned findings was prior history of neoplastic process. -Normal lipase levels -Outpatient chronic pain meds and noncompliance to thyroid medication likely contributing -Continue bowel regimen -Received IV fluids -Encouraged to ambulate (2) Narcotic abuse in remission: On buprenorphine-naloxone replacement Avoid narcotics as able (3) New onset type 2 diabetes mellitus: HbA1C:8.9 Continue insulin therapy Monitor blood glucose levels simulation educator consulted Prefers to be discharged on oral medications Diabetic diet Appreciate glycemic pharmacy input Scripts for DC: 1. OneTouch Verio Test Strips to check 1x/day. 2. OneTouch Delica lancets 33 gauge to check 1x/day. (4) Acute kidney injury: Cr:1.7>0.87 Lisinopril held Received IV fluids Avoid nephrotoxic agents as able Monitor renal function sclerotic osseous lesions on Right iliac bone and within L4 vertebral body Incidental finding on CT Denies weight loss Denies any pain Advised to follow-up as outpatient (5) Elevated troponin: Mild troponin elevation likely secondary to SUREKHA EKG no signs of acute ischemia ECHO: No wall motion abnormality Patient denies anginal symptoms Troponin levels trended down (6) Hypertension: Hold lisinopril secondary to SUREKHA Blood pressure stable Resume lisinopril as able Monitor blood pressure (7) Hypothyroidism: TSH of 36.5 Normal free T4 0.9 Admits to being noncompliant with medication use: Has not taken her levothyroxine supplement for 6 months Resume levothyroxine Repeat thyroid function tests (8) Obesity (BMI 30.0-34.9): BMI of 32.4 (9) Throat cancer: 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 (10) Tobacco dependence due to cigarettes: Nicotine patch Cessation counseling (11) DVT prophylaxis: Heparin SQ CODE STATUS: Full code Admission and Anticipated Discharge Date Admission Date: April 02, 2021 Subjective Patient is seen and examined at bedside States feeling well today Had bowel movement Denies chest pain, dyspnea, dizziness, nausea, abdominal pain Counseled on diabetes mellitus Kidney function improved Offers no other complaints Review of Systems Review of Systems: All systems reviewed & are unremarkable except as noted in HPI & below Physical Exam Physical Exam: Physical Exam: Vitals signs as noted above General Appearance:Moderately built and nourished, no apparent distress Head: normocephalic, Atraumatic, +Postsurgical deformity Eyes: normal inspection, EOMI Neck: supple, Trachea midline Respiratory/Chest: Decreased breath sounds, CTA Cardiovascular: S1, S2, No murmur Abdomen/GI:Soft, Non tender, Bowel sounds present Extremities/Musculoskeletal:normal inspection, no edema Neurologic/Psych:AAOX3, grossly no focal neurological deficits Skin: normal color, warm Results & Data Results & Data ([facility]) Vital Signs (Past 12 Hours) Vital Signs Temp Pulse Resp BP Pulse Ox 04/03/21 15:26 36.6 C 54 L 18 120/77 100 04/03/21 11:31 36.4 C L 56 L 16 129/78 100 04/03/21 11:07 36.5 C 57 L 18 136/89 100 04/03/21 07:34 36.6 C 59 L 18 125/78 98 Laboratory Results Short CBC 04/03/21 Range/Units 02:26 WBC 4.17 L (4.8-10.8) K/uL Hgb 11.3 L (12.0-16.0) g/dL Hct 33.9 L (37-47) % Plt Count 102 L (130-400) K/uL BMP 04/03/21 02:26 Sodium 141 Potassium 3.9 Chloride 108 H Carbon Dioxide 27 BUN 24 H Creatinine 0.87 D Glucose 178 H Calcium 8.4 L Cardiac Enzymes 04/02/21 04/03/21 Range/Units 16:54 02:26 Troponin I 0.054 H* 0.048 H* (0-0.045) ng/ml Liver Function 04/03/21 Range/Units 02:26 Total Bilirubin 0.2 (0.2-1) mg/dl AST 10 L (15-37) U/L ALT 19 (12-78) U/L Alkaline Phosphatase 77 (45-117) U/L Albumin 3.0 L (3.4-5.0) gm/dl (1) Hypothyroidism Hypothyroidism type: unspecified Qualified Code(s): E03.9 - Hypothyroidism, unspecified
--- NOTE | 2021-04-03 22:26 | Electrocardiogram Report ---
Test Reason : Blood Pressure : / mmHG Vent. Rate : 056 BPM Atrial Rate : 056 BPM P-R Int : 140 ms QRS Dur : 088 ms QT Int : 496 ms P-R-T Axes : 033 041 071 degrees QTc Int : 478 ms Sinus bradycardia Otherwise normal ECG When compared with ECG of 02-APR-2021 09:57, No significant change was found Confirmed by Landon Matias ([id number]) on 04/03/2021 10:26:01 PM Referred By: REFERRED SELF Confirmed By:Landon Matias
[2021-04-04] MEDS: LEVOTHYROXINE SODIUM 175 MCG TABLET PO SCH (05:41)
[2021-04-04] MEDS: POLYETHYLENE (MIRALAX) 17 GM PACK PO SCH (07:59)
[2021-04-04] MEDS: DOCUSATE SODIUM 100 MG CAP PO SCH (07:59)
[2021-04-04] MEDS: HEPARIN SOD 5,000 UNIT/0.5 ML VIAL SQ SCH (08:00)
[2021-04-04] MEDS: NICOTINE 21 MG/24 HR TDSY TD SCH (08:00)
[2021-04-04] MEDS: INSULIN ASPART 100 UNITS/ML 3 ML PEN SC SCH ×2 (08:16→12:31)
[2021-04-04] MEDS: BUPRENORPHINE/NALOXONE 8/2 MG TAB SL SCH (08:22)
[2021-04-04 08:28] LABS: Alanine Aminotransferase 40 U/L (12-78); Albumin Globulin Ratio 0.9 (0.9-2); Albumin Level 3.1 gm/dl (3.4-5.0); Alkaline Phosphatase 91 U/L (45-117); BUN Creatinine Ratio 29.2 (10-20); Bilirubin,Total 0.3 mg/dl (0.2-1); Blood Urea Nitrogen 21 mg/dl (7-18); Calcium 8.9 mg/dl (8.5-10.1); Carbon Dioxide 25 mmol/L (21-32); Chloride 109 mmol/L (98-107); Creatinine Clr Calc Pharmacy 92.5 ml/min; Est GFR (African American) 116.7 ml/min; Est GFR (Non-African American) 100.7 ml/min; Globulin 3.4 gm/dl (2.5-4.0); Glucose 93 mg/dl (70-99); Sodium 140 mmol/L (136-145); Total Protein 6.5 gm/dl (6.4-8.2)
[2021-04-04 08:46] LABS: T4 Free Thyroxine 0.95 ng/dl (0.8-1.6)
[2021-04-04] MEDS ORDERED: INSULIN GLARGINE SOLOSTAR 100 UNITS/ML 3 ML PEN SC SCH (09:00)
[2021-04-04 09:08] LABS: Hematocrit (blood only) 32.9 % (37-47); Mean Corpuscular Hemoglobin 30.1 pg (25-34); Mean Corpuscular Hgb Conc 33.4 g/dL (32-36); Mean Corpuscular Volume 90.1 fL (80-100); Mean Platelet Volume 10.7 fL (7.4-10.4); Platelet Count 126 K/uL (130-400); RDW Coefficient of Variation 12.7 % (11.5-14.5); Red Blood Count 3.65 M/uL (4.2-5.4); White Blood Count 3.73 K/uL (4.8-10.8)
[2021-04-04 09:21] LABS: Potassium 3.9 mmol/L (3.5-5.1)
[2021-04-04 09:26] LABS: Magnesium 1.9 mg/dl (1.8-2.4)
--- NOTE | 2021-04-04 11:52 | Hospitalist Progress Note ---
Date of Service April 04, 2021 Assessment & Plan (1) Constipation: Constipation Suspected pancreatitis--Less likely -CT ABD: Normal appearance of unenhanced kidneys. No hydronephrosis or nephrolithiasis is seen. Questionable mild fat stranding surrounding pancreas which might represent normal variant or developing pancreatitis. Please correlate above-mentioned findings with clinical presentation of abdominal pain and laboratory data. Interval development of few sclerotic osseous lesions since prior study performed in 2010. Please correlate above-mentioned findings was prior history of neoplastic process. 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 OneTouch Verio Test Strips to check 1x/day. 2. OneTouch Delica lancets 33 gauge to check 1x/day. (4) Acute kidney injury: Cr:1.7>0.87>0.71 Lisinopril held initially Received IV fluids Avoid nephrotoxic agents as able Monitor renal function Sclerotic osseous lesions on Right iliac bone and within L4 vertebral body Incidental finding on CT Denies weight loss Denies any pain Advised to follow-up as outpatient (5) Elevated troponin: Mild troponin elevation likely secondary to SUREKHA EKG no signs of acute ischemia ECHO: No wall motion abnormality Patient denies anginal symptoms Troponin levels trended down (6) Hypertension: BP Variable Resume lisinopril today Monitor blood pressure (7) Hypothyroidism: TSH of 36.5> 20.5 Normal free T4 0.9 Admits to being noncompliant with medication use: Has not taken her levothyroxine supplement for 6 months Continue levothyroxine Repeat thyroid function tests as outpatient (8) Obesity (BMI 30.0-34.9): BMI of 32.4 (9) Throat cancer: 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 (10) Tobacco dependence due to cigarettes: Nicotine patch Cessation counseling (11) DVT prophylaxis: Heparin SQ CODE STATUS: Full code Admission and Anticipated Discharge Date Admission Date: April 02, 2021 Subjective Patient is seen and examined at bedside No new complaints Eager to get discharged Constipation resolved Denies chest pain, dyspnea, dizziness, nausea, abdominal pain Review of Systems Review of Systems: All systems reviewed & are unremarkable except as noted in HPI & below Physical Exam Physical Exam: Physical Exam: Vitals signs as noted above General Appearance:Moderately built and nourished, no apparent distress Head: normocephalic, Atraumatic, +Postsurgical deformity Eyes: normal inspection, EOMI Neck: supple, Trachea midline Respiratory/Chest: Decreased breath sounds, CTA Cardiovascular: S1, S2, No murmur Abdomen/GI:Soft, Non tender, Bowel sounds present Extremities/Musculoskeletal:normal inspection, no edema Neurologic/Psych:AAOX3, grossly no focal neurological deficits Skin: normal color, warm Results & Data Results & Data ([facility]) Vital Signs (Past 12 Hours) Vital Signs Temp Pulse Resp BP Pulse Ox 04/04/21 07:49 36.6 C 64 16 161/94 H 96 04/04/21 02:38 37.2 C 67 18 155/84 H 96 Laboratory Results Short CBC 04/04/21 04/04/21 Range/Units 06:47 08:38 WBC Cancelled 3.73 L Hgb Cancelled 11.0 L Hct Cancelled 32.9 L Plt Count Cancelled 126 L BMP 04/04/21 04/04/21 06:47 08:51 Sodium 140 Potassium TNP 3.9 Chloride 109 H Carbon Dioxide 25 BUN 21 H Creatinine 0.71 Glucose 93 Calcium 8.9 Liver Function 04/04/21 04/04/21 Range/Units 06:47 08:51 Total Bilirubin 0.3 (0.2-1) mg/dl AST 30 (15-37) U/L ALT 40 (12-78) U/L Alkaline Phosphatase 91 (45-117) U/L Albumin 3.1 L (3.4-5.0) gm/dl (1) Hypothyroidism Hypothyroidism type: unspecified Qualified Code(s): E03.9 - Hypothyroidism, unspecified
[2021-04-04] MEDS ORDERED: lisinopril 10 MG TAB PO SCH (12:00)
--- NOTE | 2021-04-04 12:13 | Pharmacy Report ---
Pharmacy Glycemic Short Note 2 - Date of Service April 04, 2021 - Glycemic Short BSG Results (Last 24 hours): 04/03/21 04/03/21 04/04/21 16:38 20:30 06:47 Glucose 93 POC Glucose 100 H 95 04/04/21 04/04/21 07:33 11:46 Glucose POC Glucose 99 74 OUTPATIENT ANTIDIABETIC REGIMEN: * N/A * HbA1c: 8.9% (04/02/21) ASSESSMENT: 04/04/21: * Ms Hunt received 36 units of insulin yesterday (20 units basal, 16 units bolus). * Fasting BSG was slightly below goal range this morning, so Lantus reduced slightly. * Novolog parameters loosened today, as well. 04/03 * Pt received 29 units of insulin yesterday (20 units basal, 9 units bolus). * Fasting BSG was reasonable this morning (159mg/dL), so Lantus 20 units daily was ordered. Will adjust as necessary. * Novolog does not appear to be providing quite enough coverage, so carb ratio tightened slightly this afternoon. 04/02 * 50 year old female admitted with constipation, hyperglycemia/ new onset Type 2 DM, PMH of hypothyroidism, HTN, COPD, narcotic dependence history currently on buprenorphine-naloxone, and right tonsillar squamous cell carcinoma in 2012 in remission. * Blood sugar 322mg/dl in ER, will begin patient on weight based basal bolus insulin therapy and titrate to goal blood sugar * A1c pending, CDE consult PLAN FOR INPATIENT GLYCEMIC CONTROL: * Basal insulin -- reduce * Lantus 18 units SQ daily * Bolus insulin -- loosen * NovoLog per scale ACHS or Q6hrs while NPO and overnight tonight at 0000 and 0400 * Goal Range: Low 110 mg/dL - High 140 mg/dL * Correction Factor: 35 mg/dL/unit * Nutritional / Prandial insulin per carb ratio of 1 unit per 12 grams CHO consumed PLAN FOR DISCHARGE: * A1c: 8.9% * This is a new DM diagnosis. Target A1c < 7%. Patient prefers to use oral agents after discharge, which seems to be appropriate. For A1c 8-10% -- consider dual combination oral therapy (Metformin + one of the following options): * Metformin should be started at the time type 2 diabetes is diagnosed unless there are contraindications. Metformin is effective and safe, is inexpensive, and may reduce risk of cardiovascular events and . * B12 supplementation may be necessary with custodial metformin use * Recommend starting: Metformin XR 500mg PO daily with evening meal. Typically the XR formulation of metformin is better tolerated than the immediate release formulation. Continue to titrate metformin dosing upwards as recommended. Dosage increases should be made in increments of 500 mg weekly, up to 2,000 mg/day PO, given in divided doses. Doses above 2000 mg/day may be better tolerated if divided and given 3 times per day with meals. Max: 2,550 mg/day PO, in divided doses * Also recommend adding GLP-1 receptor agonist or SGLT2 inhibitor (might d epend on insurance coverage?). * Semaglutide 3 mg PO once daily for 30 days. Semaglutide oral tablets must be taken at least 30 minutes before the first food, beverage, or other oral medications of the day with no more than 4 ounces of plain water. The 3 mg dose is intended for initial titration and is not effective for glycemic control. After 30 days, increase the dose to 7 mg PO once daily. If additional glycemic control is needed after at least 30 days on the 7 mg dose, may increase to 14 mg PO once daily. Taking two 7 mg tablets to achieve a 14 mg dose is not recommended. OR * Empagliflozin 10 mg PO once daily in the morning with or without food. May increase to 25mg PO once daily in those who require additional glycemic control. * Support Patient Self-Management * Healthy Lifestyle (diet, exercise, and smoking cessation) * Disease self-management (SMBG) * Prevention of complications (BP, Lipid goals, Immunizations) * Consider outpatient Diabetes Self-Management Education & Support
--- NOTE | 2021-04-04 12:33 | Discharge Summary ---
Date of Service April 04, 2021 Admission HPI Per Admitting Provider This is a 50-year-old female with past medical history of hypothyroidism, HTN, COPD, narcotic dependence history currently on buprenorphine-naloxone, and right tonsillar squamous cell carcinoma in 2013 in remission. She presents to the ER with acute abdominal pain, and states that she has not had a bowel movement since last Saturday, 6 days ago. She tried taking a friend's Linzess tablet early last week however it only caused abdominal cramping and did not produce a bowel movement. She has not taken any fiber, stool softeners or other medication [id number]. She has been trying to drink a lot but reports that her salivary glands in her mouth do not produce very much spit since having tonsillar cancer in 2013. She admits that she has not been taking levothyroxine for over 6 months. She is only using her buprenorphine naloxone replacement routinely, has been on it x2 years. Patient reports her history of drug use started after cancer and being addicted to pain medications after chemo and radiation. She denies illicit drug and reports never using IV drugs. Her drug tox screen is positive for amphetamines and ecstasy, she further denies any recent drug use. In regards to her lisinopril, she takes this intermittently when she "feels like her blood pressure is high". She reports having increased lightheadedness with standing in the past week. She has been attempting to drink more fluids including Gatorade and water. Patient reports her diet is lacking fruits and vegetables and meats due to difficulty chewing them, and eats a lot of things with carbohydrates and sugar. She smokes 1 pack of cigarettes daily and has for past 30 years. She does not require supplemental oxygen and does not use any inhalers as prescribed per her [facility] chart review. She denies need for nicotine patch. Patient denies alcohol use for over 10 years. She lives at home with her boyfriend. Currently employed at [employer] in [employer]. The patient denies any chest pain, pressure, palpitations or syncopal episodes. She walks without any difficulty at baseline. Patient was found to have an elevated troponin of 0.054, creatinine 1.78, TSH 36 with normal T4 and a glucose of 322. CT of the abdomen showed moderate stool burden. EKG appears NSR, no ST wave inversions, but has prolonged QTC. Admission Exam Per Admitting Provider Physical Exam Physical Exam: General: awake, alert, no apparent distress, + obese with BMI of 32 Head: Normocephalic, atraumatic ENT: PERRL, EOMI, no pharyngeal exudate, mucous membranes dry, + partial upper plate Chest: Slightly diminished throughout, on room air, no adventitious breath sounds Cardiac: Regular rate and rhythm, no murmur, no JVD, normal peripheral pulses, good capillary refill Abdominal: NABS x 4 quadrants, soft, no tympany, nondistended, nontender to palpation, no rebound or guarding Extremities: Normal inspection, no peripheral edema or erythema, calfs nontender to palpation Psych: Normal mood and affect Neuro: AAO x 3, strength intact bilaterally and rated 5/5, no motor deficits, speech is clear, no peripheral sensory deficits Principal Diagnosis New onset type 2 diabetes mellitus Acute kidney injury Sclerotic osseous lesions on Right iliac bone and within L4 vertebral body Hypothyroidism Discharge Data Allergies Allergy/AdvReac Type Severity Reaction Status Date / Time No Known Allergies Allergy Verified 04/02/21 11:09 Consultations 04/02/21 11:27 ED Decision to Admit Stat Procedures Performed -CT ABD: Normal appearance of unenhanced kidneys. No hydronephrosis or nephrolithiasis is seen. Questionable mild fat stranding surrounding pancreas which might represent normal variant or developing pancreatitis. Please correlate above-mentioned findings with clinical presentation of abdominal pain and laboratory data. Interval development of few sclerotic osseous lesions since prior study performed in 2010. Please correlate above-mentioned findings was prior history of neoplastic process. Ordered Studies 04/02/21 10:47 CT abd pelvis wo con Stat Diabetes Follow up Diabetes Follow-up Needed for Newly Diagnosed Diabetes Hospital Course (1) Constipation: Constipation Suspected pancreatitis--Less likely -CT ABD: Normal appearance of unenhanced kidneys. No hydronephrosis or nephrolithiasis is seen. Questionable mild fat stranding surrounding pancreas which might represent normal variant or developing pancreatitis. Please correlate above-mentioned findings with clinical presentation of abdominal pain and laboratory data. Interval development of few sclerotic osseous lesions si nce prior study performed in 2010. Please correlate above-mentioned findings was prior history of neoplastic process. -Normal lipase levels -Outpatient chronic pain meds and noncompliance to thyroid medication likely contributing -Continue bowel regimen -Received IV fluids -Encouraged to ambulate -Resolved (2) Narcotic abuse in remission: On buprenorphine-naloxone replacement Avoid narcotics as able (3) New onset type 2 diabetes mellitus: HbA1C:8.9 Continue insulin therapy Monitor blood glucose levels health promotion educator consulted Prefers to be discharged on oral medications Diabetic diet Appreciate glycemic pharmacy input Scripts for DC: 1. OneTouch Verio Test Strips to check 1x/day. 2. OneTouch Delica lancets 33 gauge to check 1x/day. (4) Acute kidney injury: Cr:1.7>0.87>0.71 Lisinopril held initially Received IV fluids Avoid nephrotoxic agents as able Monitor renal function Sclerotic osseous lesions on Right iliac bone and within L4 vertebral body Incidental finding on CT Denies weight loss Denies any pain Advised to follow-up as outpatient (5) Elevated troponin: Mild troponin elevation likely secondary to SUREKHA EKG no signs of acute ischemia ECHO: No wall motion abnormality Patient denies anginal symptoms Troponin levels trended down (6) Hypertension: BP Variable Resume lisinopril today Monitor blood pressure (7) Hypothyroidism: TSH of 36.5> 20.5 Normal free T4 0.9 Admits to being noncompliant with medication use: Has not taken her levothyroxine supplement for 6 months Continue levothyroxine Repeat thyroid function tests as outpatient (8) Obesity (BMI 30.0-34.9): BMI of 32.4 (9) Throat cancer: 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 (10) Tobacco dependence due to cigarettes: Nicotine patch Cessation counseling (11) DVT prophylaxis: Heparin SQ CODE STATUS: Full code Total Time Total Time Spent Total Time Spent (In Minutes): 42 minutes Total Time Includes: Examination of the Patient, Discharge Planning, Medication Reconciliation, Communication With Other Providers and Other Discharge Plan Discharge Items Patient Disposition: Home - Self-Care Reason For Visit: ACUTE RENAL INJURY,HYPERGLYCEMIA,CONSTIPATION Discharge Diagnosis: New onset type 2 diabetes mellitus Acute kidney injury Sclerotic osseous lesions on Right iliac bone and within L4 vertebral body Hypothyroidism Activity: Per Instructions section Exercise/Sports: Gradually increase as tolerated Non-emergency contact: Primary Care Provider Call non-emergency contact if: you have any medication questions, your symptoms worsen, your pain is concerning for you and you have a fever Follow-up/Referrals: Leodan Estrada DO [Primary Care Provider] - (Date & Time 04/07/2021 11:20 AM Provider Leodan Estrada DO Department Family [facility] ) Diet: Carb Consistent or DM2 and Heart Healthy Addtl Attending Provider Instructions: Follow-up with your primary care physician Dr. Estrada on 04/07/2021 11:20 AM You were incidentally found to have Sclerotic bony lesions on Right iliac bone and within L4 vertebral body. Discussed with your physician for further work-up as outpatient. Quit smoking tobacco as advised Seek immediate medical attention if your symptoms reoccur or worsen Please take all medications as instructed on discharge list below. Please call if you have any questions or problems. You can reach a [facility] hospitalist on duty at [facility] 24 hours a day by calling [phone] Pending Studies at Discharge: No Stand-Alone Forms: My [facility], Work/School Release, Smoking Cessation Medications and DC Order Prescriptions: New docusate sodium 100 mg Capsule 100 mg PO BID PRN (Reason: Constipation) Qty: 30 RF: 0 polyethylene glycol 3350 [Miralax] 17 gram Powder In Packet 17 g PO DAILY PRN (Reason: Constipation) Qty: 15 RF: 0 metformin 500 mg tablet extended release 24hr 500 mg PO DAILY Qty: 30 RF: 0 semaglutide 3 mg tablet 3 mg PO DAILY 30 Days Qty: 30 RF: 0 (DME) OneTouch Verio test strips Strip See Rx Instructions .ROUTE .MEDSUPPLY Qty: 50 RF: 0 (DME) lancets [OneTouch Delica Lancets] 33 gauge misc See Rx Instructions .ROUTE .MEDSUPPLY Qty: 100 RF: 0 Continued lisinopril 10 mg Tablet 10 mg PO QAM RF: 0 buprenorphine-naloxone 8-2 mg tablet, sublingual 1 tab SUBLINGUAL BID RF: 0 levothyroxine 175 mcg Tablet 175 mcg PO QAM Qty: 30 RF: 1 Discharge Orders: Discharge Order (Routine); Ordered 04/04/21 Ordered By: Nishant Singh Admission Data Admit Date/Time: 04/02/21 11:51 Attending Provider: Nishant Singh Admit Provider: Chery Yin Primary Care Provider: Leodan Estrada Other Providers: Nishant Singh Other Interventions: Discharge Summary Assessment (RN) Last Done: 04/04/21 12:35
[2021-04-05 18:06] LABS: Amphetamine Urine, Confirm NEGATIVE ng/mL (<250); MDA negative; MDEA negative; MDMA (Ecstasy) Urine, Confirm negative; Methamphetamine, Ur Confirm 8170 ng/mL (<250)
== END 2021-04-04 13:59 | disposition home or self-care (01) | DRG 638 ==
LOC: ED 08:53 → 2N 11:51

== ENCOUNTER 2022-11-22 12:56 | Inpatient (IN) ==
[2022-11-22] MEDS ORDERED: SODIUM CHLORIDE 0.9% 1000ML 500 ML IV ONE (13:01)
[2022-11-22 13:38] LABS: Basophils # (auto) 0.03 K/uL (0-0.2); Basophils % (auto) 0.3 %; Eosinophils # (auto) 0.06 K/uL (0-0.50); Eosinophils % (auto) 0.7 %; Hematocrit (blood only) 47.9 % (37.0-47.0); Hemoglobin 15.9 g/dl (12.0-16.0); Immature Granulocytes # (auto) 0.18 K/uL (0.01-0.20); Lymphocytes # (auto) 1.31 K/uL (1.2-3.4); Lymphocytes % (auto) 14.3 %; Mean Corpuscular Hemoglobin 30.2 pg (25.0-34.0); Mean Corpuscular Hgb Conc 33.2 g/dL (32.0-36.0); Mean Corpuscular Volume 90.9 fL (80.0-100.0); Mean Platelet Volume 10.7 fL (9.4-12.4); Monocytes # (auto) 0.59 K/uL (0.11-0.59); Monocytes % (auto) 6.4 %; Neutrophils # (auto) 7.02 K/uL (1.40-6.50); Neutrophils % (auto) 76.3 %; Platelet Count 192 K/uL (130-400); RDW Coefficient of Variation 12.5 % (11.5-14.5); RDW Standard Deviation 41.2 fL (36.4-46.3); Red Blood Count 5.27 M/uL (4.20-5.40); White Blood Count 9.19 K/ul (4.8-10.8)
[2022-11-22 13:54] LABS: Alanine Aminotransferase 31 U/L (7-52); Albumin Globulin Ratio 1.3 (0.9-2); Albumin Level 4.3 gm/dl (3.4-5.0); Alkaline Phosphatase 115 U/L (34-104); Anion Gap 6 (3-11); Aspartate Aminotransferase 29 U/L (13-39); BUN Creatinine Ratio 26.5 (10-20); Bilirubin,Total 0.7 mg/dl (0.2-1.0); Blood Urea Nitrogen 27 mg/dl (6-23); Calcium 9.4 mg/dl (8.5-10.1); Carbon Dioxide 30 mmol/L (21-32); Chloride 95 mmol/L (98-107); Est GFR (African American) 74.8 ml/min; Est GFR (Non-African American) 64.5 ml/min; Globulin 3.3 gm/dl (2.5-4.0); Glucose 283 mg/dl (70-99(Fasting)); Potassium 4.6 mmol/L (3.5-5.1); Sodium 131 mmol/L (136-145); Total Protein 7.6 gm/dl (6.0-8.3)
[2022-11-22 15:49] LABS: Appearance Urine Clear (Clear); Bacteria Urine Automated Negative (Negative); Blood Urine Trace (Negative); Color Urine Dark Yellow; Epithelial Cell Urine Auto >30 /lpf (0-5); Glucose Urine UA 1+ (Negative); Ketones Urine Negative (Negative); Leukocyte Esterase Urine Negative (Negative); Nitrite Urine Negative (Negative); Protein Urine Trace (Negative); RBC Urine Automated 0-4 /hpf (0-4); Specific Gravity Urine 1.027 (1.000-1.030); Urobilinogen Urine Negative (Negative); pH Urine 5.5 (4.5-7.5)
[2022-11-22 15:51] LABS: Bilirubin Urine 1+ (Negative)
[2022-11-22] MEDS ORDERED: SODIUM CHLORIDE 0.9% 1000ML 1,000 ML IV ONE (17:22)
--- NOTE | 2022-11-22 17:49 | Emergency Department Note ---
Impression & Plan Dizziness, Elevated troponin, Hypotension, Abnormal ECG ED Provider Note NAME: NAVJOT ACEVEDO AGE: 51 SEX: F : 1970 ARRIVES VIA: Walk-In INFORMANT: [Patient][, ] ED PROVIDER(S): [Qamar Levy MD] CHIEF COMPLAINT: Illness HISTORY OF PRESENT ILLNESS: The patient is a 51-year-old female presents to the ED with dizziness. She has felt dizzy since last evening. No chest pain or shortness of breath. No fever, chills, cough or congestion. The patient states that she did have some constipation issues about 5 days ago, she started using milk of magnesia and she is now moving her bowels. Of note, in triage, the patient was hypotensive. PMHx/PSHx: See Below SOCIAL HISTORY: See Below. PHYSICAL EXAM: GENERAL: Patient is in no acute distress. HEENT: No acute trauma, normocephalic atraumatic, mucous membranes moist, no nasal congestion. NECK: No stridor, no adenopathy, no meningismus, trachea is midline. LUNGS: Clear to auscultation bilaterally, no wheeze, no rhonchi, breath sounds equal. HEART: Without murmurs gallops or rubs, regular rate and rhythm. ABDOMEN: Soft, nontender, bowel sounds positive, no peritonitis. EXTREMITIES: No cyanosis or edema, full range of motion of all the joints without pain or difficulty, no signs for acute trauma. NEUROLOGIC: Oriented x 3, no acute motor or sensory deficits, no focal weakness. SKIN: No rash, no jaundice, no diaphoresis. DIFFERENTIAL DIAGNOSIS: Dehydration, electrolyte imbalance, dysrhythmia, anemia, cardiac ischemia, infection, among others. EMERGENCY DEPARTMENT COURSE/PROCEDURES: Prior/Outside records reviewed: None ECG per my interpretation: Indication was dizziness. The ECG shows a normal sinus rhythm with a rate of 89. There are peaked T waves noted diffusely with some T wave inversion in aVR and aVL. No ST elevation. No PVCs. QTC is long at 564. Compared to the previous ECG from 04/03/2021, significant changes have occurred. Repeat ECG: Indication was dizziness. The ECG shows a normal sinus rhythm with a rate of 82. There is a potential old septal infarct. There are peaked T waves diffusely with T wave inversions in aVR and aVL, no ST elevation. The QTC is long at 516. Compared to the previous ECG, I see no significant change. Continuous Cardiac Monitoring per my interpretation: An order was placed for continuous cardiac monitoring. The monitor shows a rate of 99 with normal sinus rhythm. Critical Care Note: I have personally spent 41 minutes of critical care time in the direct management of this patient. This includes bedside care, interpretation of diagnostic studies, and testing, discussion with consultants, patient, and family members, and other required patient management activities. This 41 minutes is in excess of all separately billable procedures. MEDICAL DECISION MAKING: There is no leukocytosis or concerning anemia. There is a normal platelet count. Renal panel testing shows a lower sodium 131. Potassium was normal. Potassium was rechecked via i-STAT and was again found to be normal. Glucose was somewhat high at 283. No concerning liver enzyme elevation. ECG showed a sinus rhythm with very peaked and large T waves with inverted T waves in leads aVR and aVL. This ECG was significantly changed compared to previous ECGs. There was no dysrhythmia, no ST elevation. Cardiac enzyme testing x1 was slightly elevated at 79. This troponin elevation could be secondary to cardiac injury or potentially mismatch. Urinalysis did not show infection. COVID, influenza and RSV test were negative. On exam, patient was resting comfortably. She had no complaints of chest pain or shortness of breath. The patient had presented hypotensive when checked at triage. The patient received IV saline, 1.5 L. She has done well, her blood pressure has improved. I did call and speak with cardiology, Dr. Ortiz. He reviewed the ECG. He recommended admission, monitoring and troponin trending. At this point, the reason for the abnormal ECG is unclear. I did speak with the patient about her findings, I talked to case management, the on-call hospitalist was consulted. DISPOSITION: Based on the patient's presentation and findings, I believe hospital admission is warranted/appropriate. Past Med/Surg History Medical History Hypertension Throat cancer Surgical History History of appendectomy History of cholecystectomy History of tubal ligation Family History Other Diabetes Social History Smoking Status: Current every day smoker Tobacco Type: Cigarettes Cigarettes Per Day: 10-20; Second Hand Exposure: Yes; Hx Alcohol Use: Yes Hx Substance Use: No Preferred Language: Setswana Communication Ability: Effective Inventory Management Specialist Required: No Beliefs That Will Affect Care: None marital status: Single Current Living Situation: Other current occupational status: disabled Feels Safe at Home: Yes Assistive Devices: None Allergies Allergies Allergy/AdvReac Type Severity Reaction Status Date / Time No Known Allergies Allergy Verified 11/22/22 18:04 Home Meds Home Medications Medication Instructions Recorded Confirmed buprenorphine 8 mg-naloxone 2 mg 1 tab sublingual BID 04/02/21 11/22/22 sublingual tablet lisinopril 20 mg tablet 30 mg PO DAILY 11/22/22 11/22/22 Previous Rx's Medication Instructions Recorded blood sugar diagnostic (CelltrixTouch #50 ea 04/04/21 Verio test strips) docusate sodium 100 mg capsule 100 mg PO BID PRN Constipation #30 04/04/21 caps lancets 33 gauge (OneTouch Delica #100 ea 04/04/21 Lancets) levothyroxine 175 mcg tablet 175 mcg PO QAM #30 tabs 04/04/21 metformin 500 mg tablet,extended 500 mg PO DAILY #30 tabs 04/04/21 release 24hr polyethylene glycol 3350 17 gram 17 g PO DAILY PRN Constipation #15 04/04/21 oral powder packet (Miralax) ea Results & Data (ED) Vital Signs Vital Signs - 24 hr 11/22/22 12:57 11/22/22 18:14 Temperature 36.8 C Temperature Source Temporal Artery Scan Pulse Rate 100 H Pulse Rate [Apical] 67 Respiratory Rate 18 14 Respiratory Effort / Characteristics Non-Labored Respiratory Depth Normal Blood Pressure 88/62 L Blood Pressure [Left Arm] 125/77 Blood Pressure Mean 70 Blood Pressure Mean [Left Arm] 93 Pulse Oximetry 97 97 Oxygen Delivery Method Room Air Sepsis Recent Fever Within 48 Hours No Sepsis New/Unexplained Change in Mental Status No Sepsis Action Taken by Nursing No Action Required Home Medications Current Medication List: was personally reviewed by me Laboratory Data Attestation: I reviewed the patient's lab results. 11/22/22 13:19 11/22/22 13:19 Lab Results 11/22/22 11/22/22 11/22/22 Range/Units 13:19 13:19 15:35 WBC 9.19 (4.8-10.8) K/ul RBC 5.27 (4.20-5.40) M/uL Hgb 15.9 (12.0-16.0) g/dl POC Hgb (12.0-16.0) g/dl Hct 47.9 H (37.0-47.0) % POC Hct (37-47) % MCV 90.9 (80.0-100.0) fL MCH 30.2 (25.0-34.0) pg MCHC 33.2 (32.0-36.0) g/dL RDW Std Deviation 41.2 (36.4-46.3) fL RDW Coeff of Saman 12.5 (11.5-14.5) % Plt Count 192 (130-400) K/uL MPV 10.7 (9.4-12.4) fL Immature Gran % (Auto) 2.0 % Neut % (Auto) 76.3 % Lymph % (Auto) 14.3 % Bollinger % (Auto) 6.4 % Eos % (Auto) 0.7 % Baso % (Auto) 0.3 % Neut # (Auto) 7.02 H (1.40-6.50) K/uL Lymph # (Auto) 1.31 (1.2-3.4) K/uL Bollinger # (Auto) 0.59 (0.11-0.59) K/uL Eos # (Auto) 0.06 (0-0.50) K/uL Baso # (Auto) 0.03 (0-0.2) K/uL Immature Gran # (Auto) 0.18 (0.01-0.20) K/uL POC Sodium (135-144) mmol/L Sodium 131 L (136-145) mmol/L POC Potassium (3.3-5.0) mmol/L Potassium 4.6 (3.5-5.1) mmol/L POC Chloride (101-112) mmol/L Chloride 95 L (98-107) mmol/L Carbon Dioxide 30 (21-32) mmol/L POC Total CO2 (24-31) mmol/L Anion Gap 6 (3-11) POC Anion Gap (16-25) mmol/L POC BUN (7-18) mg/dl BUN 27 H (6-23) mg/dl Creatinine 1.02 (0.6-1.2) mg/dl POC Creatinine (0.6-1.3) mg/dl Est Cr Clr Drug Dosing Not Reportable Est GFR ( Amer) 74.8 ml/min Est GFR (Non-Af Amer) 64.5 ml/min BUN/Creatinine Ratio 26.5 H (10-20) Glucose 283 H (70-99(Fasting)) mg/dl POC Glucose (other) (70-99) mg/dl Calcium 9.4 (8.5-10.1) mg/dl POC Ioniz Calcium Sly (1.12-1.32) mmol/l Magnesium Cancelled Total Bilirubin 0.7 (0.2-1.0) mg/dl AST 29 (13-39) U/L ALT 31 (7-52) U/L Alkaline Phosphatase 115 H (34-104) U/L Troponin I High Sens (0-14) pg/ml Total Protein 7.6 (6.0-8.3) gm/dl Albumin 4.3 (3.4-5.0) gm/dl Globulin 3.3 (2.5-4.0) gm/dl Albumin/Globulin Ratio 1.3 (0.9-2) Urine Color Dark Yellow Urine Appearance Clear (Clear) Urine pH 5.5 (4.5-7.5) Ur Specific [place] 1.027 (1.000-1.030) Urine Protein Trace H (Negative) Urine Glucose (UA) 1+ H (Negative) Urine Ketones Negative (Negative) Urine Blood Trace H (Negative) Urine Nitrite Negative (Negative) Urine Bilirubin 1+ H (Negative) Urine Urobilinogen Negative (Negative) Ur Leukocyte Esterase Negative (Negative) Urine WBC (Auto) 1-5 (0-5) /hpf Urine RBC (Auto) 0-4 (0-4) /hpf U Hyaline Cast (Auto) 10-30 H (0-5) /lpf U Epithel Cells (Auto) >30 H (0-5) /lpf Urine Bacteria (Auto) Negative (Negative) SARS-CoV-2 (PCR) (Negative) Influenza Type A (PCR) (Neg) Influenza Type B (PCR) (Neg) RSV (RT-PCR) (Neg) 11/22/22 11/22/22 11/22/22 Range/Units 17:36 17:36 17:43 WBC (4.8-10.8) K/ul RBC (4.20-5.40) M/uL Hgb (12.0-16.0) g/dl POC Hgb (12.0-16.0) g/dl Hct (37.0-47.0) % POC Hct (37-47) % MCV (80.0-100.0) fL MCH (25.0-34.0) pg MCHC (32.0-36.0) g/dL RDW Std Deviation (36.4-46.3) fL RDW Coeff of Saman (11.5-14.5) % Plt Count (130-400) K/uL MPV (9.4-12.4) fL Immature Gran % (Auto) % Neut % (Auto) % Lymph % (Auto) % Bollinger % (Auto) % Eos % (Auto) % Baso % (Auto) % Neut # (Auto) (1.40-6.50) K/uL Lymph # (Auto) (1.2-3.4) K/uL [place]linger # (Auto) (0.11-0.59) K/uL Eos # (Auto) (0-0.50) K/uL Baso # (Auto) (0-0.2) K/uL Immature Gran # (Auto) (0.01-0.20) K/uL POC Sodium (135-144) mmol/L Sodium (136-145) mmol/L POC Potassium (3.3-5.0) mmol/L Potassium (3.5-5.1) mmol/L POC Chloride (101-112) mmol/L Chloride (98-107) mmol/L Carbon Dioxide (21-32) mmol/L POC Total CO2 (24-31) mmol/L Anion Gap (3-11) POC Anion Gap (16-25) mmol/L POC BUN (7-18) mg/dl BUN (6-23) mg/dl Creatinine (0.6-1.2) mg/dl POC Creatinine (0.6-1.3) mg/dl Est Cr Clr Drug Dosing Est GFR ( Amer) ml/min Est GFR (Non-Af Amer) ml/min BUN/Creatinine Ratio (10-20) Glucose (70-99(Fasting)) mg/dl POC Glucose (other) (70-99) mg/dl Calcium (8.5-10.1) mg/dl POC Ioniz Calcium Sly (1.12-1.32) mmol/l Magnesium 2.1 Total Bilirubin (0.2-1.0) mg/dl AST (13-39) U/L ALT (7-52) U/L Alkaline Phosphatase (34-104) U/L Troponin I High Sens 79.8 H* (0-14) pg/ml Total Protein (6.0-8.3) gm/dl Albumin (3.4-5.0) gm/dl Globulin (2.5-4.0) gm/dl Albumin/Globulin Ratio (0.9-2) Urine Color Urine Appearance (Clear) Urine pH (4.5-7.5) Ur Specific [place] (1.000-1.030) Urine Protein (Negative) Urine Glucose (UA) (Negative) Urine Ketones (Negative) Urine Blood (Negative) Urine Nitrite (Negative) Urine Bilirubin (Negative) Urine Urobilinogen (Negative) Ur Leukocyte Esterase (Negative) Urine WBC (Auto) (0-5) /hpf Urine RBC (Auto) (0-4) /hpf U Hyaline Cast (Auto) (0-5) /lpf U Epithel Cells (Auto) (0-5) /lpf Urine Bacteria (Auto) (Negative) SARS-CoV-2 (PCR) NEGATIVE (Negative) Influenza Type A (PCR) Negative (Neg) Influenza Type B (PCR) Negative (Neg) RSV (RT-PCR) Negative (Neg) 11/22/22 Range/Units 17:43 WBC (4.8-10.8) K/ul RBC (4.20-5.40) M/uL Hgb (12.0-16.0) g/dl POC Hgb 15.0 (12.0-16.0) g/dl Hct (37.0-47.0) % POC Hct 44 (37-47) % MCV (80.0-100.0) fL MCH (25.0-34.0) pg MCHC (32.0-36.0) g/dL RDW Std Deviation (36.4-46.3) fL RDW Coeff of Saman (11.5-14.5) % Plt Count (130-400) K/uL MPV (9.4-12.4) fL Immature Gran % (Auto) % Neut % (Auto) % Lymph % (Auto) % [place]linger % (Auto) % Eos % (Auto) % Baso % (Auto) % Neut # (Auto) (1.40-6.50) K/uL Lymph # (Auto) (1.2-3.4) K/uL [place]linger # (Auto) (0.11-0.59) K/uL Eos # (Auto) (0-0.50) K/uL Baso # (Auto) (0-0.2) K/uL Immature Gran # (Auto) (0.01-0.20) K/uL POC Sodium 134 L (135-144) mmol/L Sodium (136-145) mmol/L POC Potassium 4.2 (3.3-5.0) mmol/L Potassium (3.5-5.1) mmol/L POC Chloride 96 L (101-112) mmol/L Chloride (98-107) mmol/L Carbon Dioxide (21-32) mmol/L POC Total CO2 31 (24-31) mmol/L Anion Gap (3-11) POC Anion Gap 13.0 L (16-25) mmol/L POC BUN 28 H (7-18) mg/dl BUN (6-23) mg/dl Creatinine (0.6-1.2) mg/dl POC Creatinine 0.9 (0.6-1.3) mg/dl Est Cr Clr Drug Dosing Est GFR ( Amer) ml/min Est GFR (Non-Af Amer) ml/min BUN/Creatinine Ratio (10-20) Glucose (70-99(Fasting)) mg/dl POC Glucose (other) 215 H (70-99) mg/dl Calcium (8.5-10.1) mg/dl POC Ioniz Calcium Sly 1.13 (1.12-1.32) mmol/l Magnesium Total Bilirubin (0.2-1.0) mg/dl AST (13-39) U/L ALT (7-52) U/L Alkaline Phosphatase (34-104) U/L Troponin I High Sens (0-14) pg/ml Total Protein (6.0-8.3) gm/dl Albumin (3.4-5.0) gm/dl Globulin (2.5-4.0) gm/dl Albumin/Globulin Ratio (0.9-2) Urine Color Urine Appearance (Clear) Urine pH (4.5-7.5) Ur Specific [place] (1.000-1.030) Urine Protein (Negative) Urine Glucose (UA) (Negative) Urine Ketones (Negative) Urine Blood (Negative) Urine Nitrite (Negative) Urine Bilirubin (Negative) Urine Urobilinogen (Negative) Ur Leukocyte Esterase (Negative) Urine WBC (Auto) (0-5) /hpf Urine RBC (Auto) (0-4) /hpf U Hyaline Cast (Auto) (0-5) /lpf U Epithel Cells (Auto) (0-5) /lpf Urine Bacteria (Auto) (Negative) SARS-CoV-2 (PCR) (Negative) Influenza Type A (PCR) (Neg) Influenza Type B (PCR) (Neg) RSV (RT-PCR) (Neg) Administered Medications Sodium Chloride (Nss 1000ml) 1,000 mls @ 100 mls/hr IV .Q10H COLLIN Stop: 12/22/22 22:47 Last Admin: 11/22/22 23:37 Dose: 100 mls/hr Documented By: DMITRY Insulin Aspart (Insulin Aspart Per Unit) 0 units SC ACHS COLLIN Stop: 12/22/22 22:47 Last Admin: 11/22/22 23:27 Dose: 3 units Documented By: DMITRY Co-signed By: ASM Discontinued Medications Sodium Chloride (Nss 1000ml) 500 mls @ 999 mls/hr IV .Q31M ONE Stop: 11/22/22 13:31 Last Infusion: 11/22/22 17:23 Dose: 0 mls/hr Documented By: Admin: 11/22/22 13:48 Dose: 999 mls/hr Documented By: MARGO Sodium Chloride (Nss 1000ml) 1,000 mls @ 999 mls/hr IV .Q1H1M ONE Stop: 11/22/22 18:22 Last Infusion: 11/22/22 18:52 Dose: 0 mls/hr Documented By: Admin: 11/22/22 17:40 Dose: 999 mls/hr Documented By: RAMIREZ Discharge Plan Visit Data Chief Complaint: Illness Stated Complaint: CONSTIPATION, DIZZY ED Provider: Qamar Levy Discharge Problem: Dizziness, Elevated troponin, Hypotension, Abnormal ECG Patient Disposition: Admitted As Inpatient Condition: Fair Discharge Instructions Interventions: ED Discharge Assessment Last Done: 11/22/22 22:19
[2022-11-22 19:03] LABS: Influenza A virus by PCR Negative (Neg); Influenza B virus by PCR Negative (Neg); RSV by PCR Negative (Neg); SARS CoV2 RNA(COVID-19) Ceph NEGATIVE (Negative)
[2022-11-22 21:58] LABS: iSTAT Creatinine 0.9 mg/dl (0.6-1.3); iSTAT Ionized Calcium 1.13 mmol/l (1.12-1.32); iSTAT Potassium 4.2 mmol/L (3.3-5.0)
--- NOTE | 2022-11-22 22:28 | History and Physical Report ---
DATE OF ADMISSION: 11/22/2022. CHIEF COMPLAINT: Dizziness. HISTORY OF PRESENT ILLNESS: A 51-year-old female with past medical history significant for type 2 diabetes, hypothyroidism, history of COPD, seasonal allergic rhinitis, hypertension, GERD, osteoarthritis of the right hand, ongoing tobacco abuse, smokes half pack a day, neurofibroma of back, history of tonsillar cancer diagnosed in 2013 as per the patient, status post surgery, chemoradiation, currently in remission and the patient follows with [facility] at [place], chronic pain .Patient says because of cancer, she was in lot of pain and was on pain medications and since last 4 years, she is on Suboxone, presents with dizziness. The patient says she was constipated last few days and yesterday, she took milk of magnesia. She had 3 bowel movements and then she was feeling dizzy all night and in the morning, so she came to the ER, found to be hypotensive with fluids the blood pressure improved and dizziness is better. But she has an abnormal EKG, so is the reason for the patient getting admitted. Denies any chest pain, no shortness of breath, no cough, no fevers, no nausea, no abdominal pain, no headache, no blurred visions, no runny nose, no sore throat, no difficulty swallowing, feeling hungry currently, wants to eat. Normal bowel and bladder movements. Denies any blood in her stools or black stools. No hematuria. No swelling in the legs. Otherwise, she is ambulating okay. ALLERGIES: No known drug allergies. PAST MEDICAL HISTORY: As mentioned above. PAST SURGICAL HISTORY: Carpal tunnel surgery, colonoscopy, cholecystectomy, appendectomy, ligation of oviducts, tonsillectomy on the right side for the cancer. MEDICATIONS: The patient is on Suboxone 8/2 mg sublingual b.i.d., Colace 100 mg p.o. b.i.d. p.r.n., levothyroxine 125 mcg p.o. daily, lisinopril 30 mg p.o. daily, metformin 500 mg p.o. daily, MiraLax 17 gm p.o. daily p.r.n., albuterol p.r.n. FAMILY HISTORY: Significant for father has hepatitis C, mother has hypertension, maternal aunt has breast cancer. SOCIAL HISTORY: Smokes half pack a day for last 25 years. No alcohol use. Denies any other drugs than Suboxone. REVIEW OF SYSTEMS: As per HPI. Rest of review of systems is negative. PHYSICAL EXAMINATION: GENERAL: The patient is of moderate build, not in acute distress. VITAL SIGNS: Temperature 36.8, pulse 67, respiratory rate 14, blood pressure when she came in was 88/62, currently 125/77, oxygen 97% on room air. HEENT: Pupils equal, round and reactive to light. Oral mucosa moist. Absent dentition. NECK: No neck masses seen. CARDIOVASCULAR: S1 and S2 heard. Regular rate and rhythm. No murmur, no gallop. RESPIRATORY SYSTEM: Normal AP diameter. No accessory muscle use. No wheezing, no crackles. ABDOMEN: Soft, bowel sounds present, nontender, no distention. CENTRAL NERVOUS SYSTEM: Alert and oriented. Speech is clear. No facial droop. Obeys simple commands. Moves extremities. EXTREMITIES: No edema, no erythema. LABORATORY DATA: WBC is 9.1, hemoglobin 15.9, hematocrit 47.9, platelets 192. Sodium 131, potassium 4.6, chloride 95, bicarbonate 30, BUN 27, creatinine 1.02, serum glucose 283, calcium 9.4, magnesium 2.1, total bilirubin 0.7, AST 29, ALT 31, alkaline phosphatase 115. Troponin I high sensitivity ____. Urinalysis, +1 bilirubin. SARS-CoV-2 PCR negative. Influenza A and B PCR negative. RSV PCR is negative. IMAGING DATA: EKG showing sinus rhythm with short ND at a rate of 89, prolonged QT. Tall Q-waves in inferior and lateral leads. ASSESSMENT AND PLAN: This is a 51-year-old female, who presents with dizziness and hypotension and fopund to have abnormal ekg. 1. Dizziness, hypotension. The patient got fluids and dizziness is improving. Will continue IV fluids. We will hold her lisinopril. Monitor in the tele floor. 2. Abnormal EKG with prolonged QTc and tall Q-waves. Electrolytes are okay. Discussed with cardiology. We will monitor in the tele floor. Echocardiogram. We will keep n.p.o. after midnight. Closely monitor. Further recommendations as per Cardiology. Avoid QT prolonging drugs. Hold Suboxone for now. Urine drug screen. 3. History of hypertension. Holding lisinopril because of hypotension. Monitor blood pressure. 4. Hypothyroidism. On Synthroid. We will follow TSH levels. 5. History of diabetes. Holding metformin. Place insulin sliding scale. Follow HbA1c levels. Follow the blood sugars. 6. History of tonsillar cancer, status post surgery, chemo and radiation. Follow up with [facility], [place], operated by [facility]. Currently in remission as per the patient since 8-9 years. 7. Tobacco abuse. Needs counseling. 8. Deep venous thrombosis prophylaxis: Sequential compression devices for now. DISPOSITION: Closely monitor in tele floor. Level 1 full code. Expect to discharge home and follow with family doctor. Job ID: [id number] [facility]
[2022-11-22] MEDS ORDERED: NITROGLYCERIN SL 0.4 MG/TAB TAB SL PRN (22:48)
[2022-11-22] MEDS ORDERED: GLUCOSE 10 TAB/TUBE PO PRN (22:48)
[2022-11-22] MEDS ORDERED: DOCUSATE SODIUM 100 MG CAP PO PRN (22:48)
[2022-11-22] MEDS ORDERED: DEXTROSE 50% 50 ML SYRINGE IV PRN (22:48)
[2022-11-22] MEDS ORDERED: GLUCAGON FOR INJ 1 MG VIAL SQ PRN (22:48)
[2022-11-22] MEDS ORDERED: ACETAMINOPHEN 325 MG TAB PO PRN (22:48)
[2022-11-22] MEDS ORDERED: POLYETHYLENE (MIRALAX) 17 GM PACK PO PRN ×2 (22:48)
[2022-11-22] MEDS ORDERED: GLUCOSE 40% GEL 15 GM TUBE PO PRN (22:48)
[2022-11-22] MEDS ORDERED: CARBOHYDRATES FOR HYPOGLYCEMIA PO PRN (22:48)
[2022-11-22] MEDS: INSULIN ASPART PER UNIT SC SCH (23:27)
[2022-11-22] MEDS: SODIUM CHLORIDE 0.9% 1000ML 1,000 ML IV SCH (23:37)
[2022-11-23 06:30] LABS: Calcium 8.5 mg/dl (8.5-10.1); Magnesium 1.8 mg/dl (1.7-2.4)
[2022-11-23] MEDS ORDERED: LEVOTHYROXINE SODIUM 175 MCG TABLET PO SCH (06:30)
[2022-11-23 06:36] LABS: Estimated Average Glucose 189 mg/dl; Hemoglobin A1C 8.2 % (4.5-5.6)
[2022-11-23 06:39] LABS: BUN Creatinine Ratio 31.8 (10-20); Est GFR (African American) 120.2 ml/min; Est GFR (Non-African American) 103.7 ml/min; Thyroid Stimulating Hormone 13.541 uIu/ml (0.300-4.500)
[2022-11-23 06:44] LABS: Hematocrit (blood only) 37.7 % (37.0-47.0); Hemoglobin 12.9 g/dl (12.0-16.0); Mean Corpuscular Hemoglobin 30.5 pg (25.0-34.0); Mean Corpuscular Hgb Conc 34.2 g/dL (32.0-36.0); Mean Corpuscular Volume 89.1 fL (80.0-100.0); Mean Platelet Volume 11.2 fL (9.4-12.4); Platelet Count 129 K/uL (130-400); RDW Coefficient of Variation 12.5 % (11.5-14.5); RDW Standard Deviation 40.7 fL (36.4-46.3); Red Blood Count 4.23 M/uL (4.20-5.40); White Blood Count 4.75 K/ul (4.8-10.8)
[2022-11-23 06:46] LABS: Basophils # (auto) 0.03 K/uL (0-0.2); Basophils % (auto) 0.6 %; Eosinophils # (auto) 0.13 K/uL (0-0.50); Eosinophils % (auto) 2.7 %; Immature Granulocytes # (auto) 0.02 K/uL (0.01-0.20); Immature Granulocytes % (auto) 0.4 %; Lymphocytes % (auto) 23.2 %; Monocytes # (auto) 0.33 K/uL (0.11-0.59); Monocytes % (auto) 6.9 %; Neutrophils # (auto) 3.14 K/uL (1.40-6.50); Neutrophils % (auto) 66.2 %
[2022-11-23 07:34] LABS: T4 Free Thyroxine 0.7 ng/dl (0.61-1.60)
[2022-11-23] MEDS: INSULIN ASPART PER UNIT SC SCH ×2 (08:03→13:13)
[2022-11-23] MEDS: SODIUM CHLORIDE 0.9% 1000ML 1,000 ML IV SCH (09:22)
[2022-11-23 10:44] LABS: Amphetamines+Metham, Urine Pos (Neg); Barbiturates, Urine Neg (Neg); Benzodiazepine, Urine Neg (Neg); Cocaine, Urine Neg (Neg); MDMA (Ecstacy), Urine Neg (Neg); Methadone, Urine Neg (Neg); Opiate, Urine Neg (Neg); Phencyclidine, Urine Neg (Neg)
--- NOTE | 2022-11-23 12:41 | Hospitalist Progress Note ---
Date of Service November 23, 2022 Assessment & Plan (1) Dizziness: Plan: Patient is a 51 yr female, who presents with dizziness and hypotension and found to have abnormal ekg. Dizziness Likely due to hypotension/dehydration -ECHO: Moderate concentric LVH. EF 60 to 65%. Left ventricle wall motion is normal. Grade 1 diastolic dysfunction. Right ventricle systolic function is normal. Left atrial size is normal. Right atrial size is normal. Trace aortic regurgitation. Trace mitral regurgitation. BP improved with IV fluids Resume lisinopril as able Abnormal EKG Prolonged QTc Mild Troponin elevation -ECHO as above Denies any chest pain, dyspnea Cardiology consulted Troponin trended down Chronic thrombocytopenia No bleeding issues Monitor platelets Hypothyroidism TSH elevated (better when compared to prior studies) Normal free T4 levels Continue levothyroxine Follow-up as outpatient DM II HbA1c 8.2 Hold p.o. meds Continue insulin while hospitalized Monitor BGs H/O Tonsillar cancer S/P surgery, chemo and radiation Follow up with [facility] In remission for 8-9 years. 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 DVT Px: SCDs for now CODE STATUS Full code Admission and Anticipated Discharge Date Admission Date: November 22, 2022 Subjective Patient is seen and examined at bedside Dizziness resolved States feeling well today Denies any chest pain, dyspnea, nausea, abdominal pain No other complaints Review of Systems Review of Systems: All systems reviewed & are unremarkable except as noted in Subjective Physical Exam Physical Exam: Physical Exam: Vitals signs as noted above General Appearance:Moderately built and nourished, no apparent distress Head: normocephalic, Atraumatic Eyes: normal inspection, EOMI Neck: supple, Trachea midline Respiratory/Chest: Normal breath sounds, CTA, No accessory muscle use Cardiovascular: S1, S2, No murmur Abdomen/GI:Soft, Non tender, Bowel sounds present Extremities/Musculoskeletal:normal inspection, no edema Neurologic/Psych:AAOX3, grossly no focal neurological deficits Skin: normal color, warm Results & Data Results & Data ([facility]) Vital Signs (Past 12 Hours) Vital Signs Temp Pulse Pulse Resp BP Pulse Ox O2 Del Method 11/23/22 11:41 36.7 C 65 18 138/88 99 Room Air 11/23/22 08:30 91 H 11/23/22 06:39 36.7 C 68 18 147/88 H 97 Room Air 11/23/22 02:59 36.9 C 72 18 135/83 97 Room Air 11/23/22 01:05 75 Laboratory Results Short CBC 11/22/22 11/23/22 Range/Units 13:19 05:27 WBC 9.19 4.75 L (4.8-10.8) K/ul Hgb 15.9 12.9 D (12.0-16.0) g/dl Hct 47.9 H 37.7 (37.0-47.0) % Plt Count 192 129 L (130-400) K/uL BMP 11/22/22 11/23/22 13:19 05:27 Sodium 131 L 137 Potassium 4.6 4.0 Chloride 95 L 104 Carbon Dioxide 30 29 BUN 27 H 21 Creatinine 1.02 0.66 D Glucose 283 H 154 H Calcium 9.4 8.5 Liver Function 11/22/22 Range/Units 13:19 Total Bilirubin 0.7 (0.2-1.0) mg/dl AST 29 (13-39) U/L ALT 31 (7-52) U/L Alkaline Phosphatase 115 H (34-104) U/L Albumin 4.3 (3.4-5.0) gm/dl Urine 11/22/22 Range/Units 15:35 Urine Color Dark Yellow Urine Appearance Clear (Clear) Urine pH 5.5 (4.5-7.5) Ur Specific [place] 1.027 (1.000-1.030) Urine Protein Trace H (Negative) Urine Glucose (UA) 1+ H (Negative)
--- NOTE | 2022-11-23 15:04 | Electrocardiogram Report ---
Test Reason : Blood Pressure : / mmHG Vent. Rate : 089 BPM Atrial Rate : 089 BPM P-R Int : 104 ms QRS Dur : 066 ms QT Int : 464 ms P-R-T Axes : 046 030 078 degrees QTc Int : 564 ms Sinus rhythm Prolonged QT Abnormal ECG When compared with ECG of 03-APR-2021 05:51, PA interval has decreased Vent. rate has increased BY 33 BPM T wave amplitude has increased in Inferior leads Nonspecific T wave abnormality no longer evident in Lateral leads QT has lengthened Confirmed by Bridger Pineda ([id number]) on 11/23/2022 3:04:20 PM Referred By: Confirmed By:Esdras Pineda
--- NOTE | 2022-11-23 15:08 | Cardiology Consultation ---
Date of Consultation November 23, 2022 Assessment & Plan (1) Dizziness: (2) Abnormal ECG: Plan The patient's echocardiogram shows no wall motion abnormalities or other significant findings that would explain her EKG abnormalities. Her tox screen however, indicates that she recently has been using methamphetamine and ecstasy. After some questioning the patient admits that she in addition to the Suboxone was using these drugs. It is likely that that is the reason for her abnormal EKG and I counseled her on the likelihood she could develop a malignant arrhythmia with the combination of these medications. Today's EKG has improved and I suspect it is because she has not had any of these drugs now for over 24 hours. She was also given some IV hydration. From this point I do not believe any additional cardiac testing is indicated. The patient may need rehab or mental health counseling. History of Present Illness Attending Physician: Nishant Singh MD History of Present Illness This is a 51-year-old female who has been having problems with constipation over several days taking laxatives and was able to have a bowel movement but then became dizzy and lethargic and decided to come to the emergency department. She has a history of opioid abuse and has been on Suboxone which she describes as several years. After arrival to the emergency department she was noted to have a markedly abnormal EKG with diffuse QT interval lengthening and peaking of her T waves. Electrolytes were within normal limits. She was not acidotic or alkalotic. She was admitted for observation. Allergies Allergy/AdvReac Type Severity Reaction Status Date / Time No Known Allergies Allergy Verified 11/22/22 18:04 Home Medications Medication Instructions Recorded Confirmed Type buprenorphine 8 mg-naloxone 2 mg 1 tab sublingual BID 04/02/21 11/22/22 History sublingual tablet blood sugar diagnostic (OneTouch #50 ea 04/04/21 Rx Verio test strips) docusate sodium 100 mg capsule 100 mg PO BID PRN Constipation #30 04/04/21 11/22/22 Rx caps lancets 33 gauge (OneTouch Delica #100 ea 04/04/21 Rx Lancets) levothyroxine 175 mcg tablet 175 mcg PO QAM #30 tabs 04/04/21 11/22/22 Rx metformin 500 mg tablet,extended 500 mg PO DAILY #30 tabs 04/04/21 11/22/22 Rx release 24hr polyethylene glycol 3350 17 gram 17 g PO DAILY PRN Constipation #15 04/04/21 11/22/22 Rx oral powder packet (Miralax) ea lisinopril 20 mg tablet 30 mg PO DAILY 11/22/22 11/22/22 History Patient History Medical History Hypertension Throat cancer Surgical History History of appendectomy History of cholecystectomy History of tubal ligation Family History Other Diabetes Social History Smoking Status: Current every day smoker Tobacco Type: Cigarettes Cigarettes Per Day: 10-20; Second Hand Exposure: Yes; Hx Alcohol Use: Yes (years ago) Preferred Language: Niuean Communication Ability: Effective [employer] Required: No Beliefs That Will Affect Care: None marital status: Single Current Living Situation: Family current occupational status: disabled Feels Safe at Home: Yes Safety Concerns: Feels Safe At This Time Assistive Devices: None Review of Systems Review of Systems: Review of Systems: See HPI for pertinent positives. All other 10 point review of systems are negative. Physical Exam Physical Exam: General: no acute distress and stated age Head: normocephalic, no masses, lesions, tenderness or abnormalities Eyes: conjunctiva are pink and non-injected, sclera clear Neck: supple, no adenopathy, no bruits, normal jugular venous pulse, no hepatojugular reflux Chest: normal shape and normal respiratory effort Lungs: clear to auscultation and percussion Cardiac Exam: - regular rate & rhythm, no murmurs gallops or rubs - normal S1, normal S2 Pulses: 2(+) throughout Abdomen: abdomen soft, non-tender, no abnormal masses and no hepatosplenomegaly Musculoskeletal: no gait disturbance, no joint inflammation, no deforming arthritis Extremities: no edema and no cyanosis Neuro: grossly normal exam Results & Data ([facility]) Vital Signs (Past 12 Hours) Vital Signs Temp Pulse Pulse Resp BP Pulse Ox O2 Del Method 11/23/22 11:41 36.7 C 65 18 138/88 99 Room Air 11/23/22 08:30 91 H 11/23/22 06:39 36.7 C 68 18 147/88 H 97 Room Air Laboratory Results Laboratory Results - last 24 hr 11/22/22 11/22/22 11/22/22 13:19 15:35 17:36 WBC RBC Hgb POC Hgb Hct POC Hct MCV MCH MCHC RDW Std Deviation RDW Coeff of Saman Plt Count MPV Immature Gran % (Auto) Neut % (Auto) Lymph % (Auto) [place] % (Auto) Eos % (Auto) Baso % (Auto) Neut # (Auto) Lymph # (Auto) [place] # (Auto) Eos # (Auto) Baso # (Auto) Immature Gran # (Auto) POC Sodium Sodium POC Potassium Potassium POC Chloride Chloride Carbon Dioxide POC Total CO2 Anion Gap POC Anion Gap POC BUN BUN Creatinine POC Creatinine Est Cr Clr Drug Dosing Est GFR ( Amer) Est GFR (Non-Af Amer) BUN/Creatinine Ratio Glucose POC Glucose POC Glucose (other) Estimat Average Glucose Hemoglobin A1c Calcium POC Ioniz Calcium Sly Magnesium Cancelled 2.1 Troponin I High Sens TSH Free T4 Urine Color Dark Yellow Urine Appearance Clear Urine pH 5.5 Ur Specific [place] 1.027 Urine Protein Trace H Urine Glucose (UA) 1+ H Urine Ketones Negative Urine Blood Trace H Urine Nitrite Negative Urine Bilirubin 1+ H Urine Urobilinogen Negative Ur Leukocyte Esterase Negative Urine WBC (Auto) 1-5 Urine RBC (Auto) 0-4 U Hyaline Cast (Auto) 10-30 H U Epithel Cells (Auto) >30 H Urine Bacteria (Auto) Negative Urine Opiates Screen Ur Methadone, Qual Urine Barbiturates Ur Phencyclidine (PCP) U Amphetamines Confirm U Amphetamin/Meth Scrn U Methamphetamin Confrm MDMA (Ecstasy) Screen U Benzodiazepines Scrn Ur Cocaine Metabolite U Marijuana (THC) Screen Drug Screen Comment SARS-CoV-2 (PCR) Influenza Type A (PCR) Influenza Type B (PCR) RSV (RT-PCR) 11/22/22 11/22/22 11/22/22 17:36 17:43 17:43 WBC RBC Hgb POC Hgb 15.0 Hct POC Hct 44 MCV MCH MCHC RDW Std Deviation RDW Coeff of Saman Plt Count MPV Immature Gran % (Auto) Neut % (Auto) Lymph % (Auto) [place] % (Auto) Eos % (Auto) Baso % (Auto) Neut # (Auto) Lymph # (Auto) [place] # (Auto) Eos # (Auto) Baso # (Auto) Immature Gran # (Auto) POC Sodium 134 L Sodium POC Potassium 4.2 Potassium POC Chloride 96 L Chloride Carbon Dioxide POC Total CO2 31 Anion Gap POC Anion Gap 13.0 L POC BUN 28 H BUN Creatinine POC Creatinine 0.9 Est Cr Clr Drug Dosing Est GFR ( Amer) Est GFR (Non-Af Amer) BUN/Creatinine Ratio Glucose POC Glucose POC Glucose (other) 215 H Estimat Average Glucose Hemoglobin A1c Calcium POC Ioniz Calcium Sly 1.13 Magnesium Troponin I High Sens 79.8 H* TSH Free T4 Urine Color Urine Appearance Urine pH Ur Specific [place] Urine Protein Urine Glucose (UA) Urine Ketones Urine Blood Urine Nitrite Urine Bilirubin Urine Urobilinogen Ur Leukocyte Esterase Urine WBC (Auto) Urine RBC (Auto) U Hyaline Cast (Auto) U Epithel Cells (Auto) Urine Bacteria (Auto) Urine Opiates Screen Ur Methadone, Qual Urine Barbiturates Ur Phencyclidine (PCP) U Amphetamines Confirm U Amphetamin/Meth Scrn U Methamphetamin Confrm MDMA (Ecstasy) Screen U Benzodiazepines Scrn Ur Cocaine Metabolite U Marijuana (THC) Screen Drug Screen Comment SARS-CoV-2 (PCR) NEGATIVE Influenza Type A (PCR) Negative Influenza Type B (PCR) Negative RSV (RT-PCR) Negative 11/22/22 11/23/22 11/23/22 23:12 05:27 05:27 WBC RBC Hgb POC Hgb Hct POC Hct MCV MCH MCHC RDW Std Deviation RDW Coeff of Saman Plt Count MPV Immature Gran % (Auto) Neut % (Auto) Lymph % (Auto) [place] % (Auto) Eos % (Auto) Baso % (Auto) Neut # (Auto) Lymph # (Auto) [place] # (Auto) Eos # (Auto) Baso # (Auto) Immature Gran # (Auto) POC Sodium Sodium POC Potassium Potassium POC Chloride Chloride Carbon Dioxide POC Total CO2 Anion Gap POC Anion Gap POC BUN BUN Creatinine POC Creatinine Est Cr Clr Drug Dosing Est GFR ( Amer) Est GFR (Non-Af Amer) BUN/Creatinine Ratio Glucose POC Glucose 236 H POC Glucose (other) Estimat Average Glucose Hemoglobin A1c Calcium POC Ioniz Calcium Sly Magnesium Troponin I High Sens 51.4 H* D TSH 13.541 H Free T4 0.70 Urine Color Urine Appearance Urine pH Ur Specific [place] Urine Protein Urine Glucose (UA) Urine Ketones Urine Blood Urine Nitrite Urine Bilirubin Urine Urobilinogen Ur Leukocyte Esterase Urine WBC (Auto) Urine RBC (Auto) U Hyaline Cast (Auto) U Epithel Cells (Auto) Urine Bacteria (Auto) Urine Opiates Screen Ur Methadone, Qual Urine Barbiturates Ur Phencyclidine (PCP) U Amphetamines Confirm U Amphetamin/Meth Scrn U Methamphetamin Confrm MDMA (Ecstasy) Screen U Benzodiazepines Scrn Ur Cocaine Metabolite U Marijuana (THC) Screen Drug Screen Comment SARS-CoV-2 (PCR) Influenza Type A (PCR) Influenza Type B (PCR) RSV (RT-PCR) 11/23/22 11/23/22 11/23/22 05:27 05:27 05:27 WBC 4.75 L RBC 4.23 Hgb 12.9 D POC Hgb Hct 37.7 POC Hct MCV 89.1 MCH 30.5 MCHC 34.2 RDW Std Deviation 40.7 RDW Coeff of Saman 12.5 Plt Count 129 L MPV 11.2 Immature Gran % (Auto) 0.4 Neut % (Auto) 66.2 Lymph % (Auto) 23.2 Whiteside % (Auto) 6.9 Eos % (Auto) 2.7 Baso % (Auto) 0.6 Neut # (Auto) 3.14 Lymph # (Auto) 1.10 L [place] # (Auto) 0.33 Eos # (Auto) 0.13 Baso # (Auto) 0.03 Immature Gran # (Auto) 0.02 POC Sodium Sodium 137 POC Potassium Potassium 4.0 POC Chloride Chloride 104 Carbon Dioxide 29 POC Total CO2 Anion Gap 4 POC Anion Gap POC BUN BUN 21 Creatinine 0.66 D POC Creatinine Est Cr Clr Drug Dosing 88.0 Est GFR ( Amer) 120.2 Est GFR (Non-Af Amer) 103.7 BUN/Creatinine Ratio 31.8 H Glucose 154 H POC Glucose POC Glucose (other) Estimat Average Glucose 189 Hemoglobin A1c 8.2 H Calcium 8.5 POC Ioniz Calcium Sly Magnesium 1.8 Troponin I High Sens TSH Free T4 Urine Color Urine Appearance Urine pH Ur Specific [place] Urine Protein Urine Glucose (UA) Urine Ketones Urine Blood Urine Nitrite Urine Bilirubin Urine Urobilinogen Ur Leukocyte Esterase Urine WBC (Auto) Urine RBC (Auto) U Hyaline Cast (Auto) U Epithel Cells (Auto) Urine Bacteria (Auto) Urine Opiates Screen Ur Methadone, Qual Urine Barbiturates Ur Phencyclidine (PCP) U Amphetamines Confirm U Amphetamin/Meth Scrn U Methamphetamin Confrm MDMA (Ecstasy) Screen U Benzodiazepines Scrn Ur Cocaine Metabolite U Marijuana (THC) Screen Drug Screen Comment SARS-CoV-2 (PCR) Influenza Type A (PCR) Influenza Type B (PCR) RSV (RT-PCR) 11/23/22 11/23/22 11/23/22 07:57 09:12 09:12 WBC RBC Hgb POC Hgb Hct POC Hct MCV MCH MCHC RDW Std Deviation RDW Coeff of Saman Plt Count MPV Immature Gran % (Auto) Neut % (Auto) Lymph % (Auto) [place] % (Auto) Eos % (Auto) Baso % (Auto) Neut # (Auto) Lymph # (Auto) [place] # (Auto) Eos # (Auto) Baso # (Auto) Immature Gran # (Auto) POC Sodium Sodium POC Potassium Potassium POC Chloride Chloride Carbon Dioxide POC Total CO2 Anion Gap POC Anion Gap POC BUN BUN Creatinine POC Creatinine Est Cr Clr Drug Dosing Est GFR ( Amer) Est GFR (Non-Af Amer) BUN/Creatinine Ratio Glucose POC Glucose 164 H POC Glucose (other) Estimat Average Glucose Hemoglobin A1c Calcium POC Ioniz Calcium Sly Magnesium Troponin I High Sens TSH Free T4 Urine Color Urine Appearance Urine pH Ur Specific [place] Urine Protein Urine Glucose (UA) Urine Ketones Urine Blood Urine Nitrite Urine Bilirubin Urine Urobilinogen Ur Leukocyte Esterase Urine WBC (Auto) Urine RBC (Auto) U Hyaline Cast (Auto) U Epithel Cells (Auto) Urine Bacteria (Auto) Urine Opiates Screen Neg Ur Methadone, Qual Neg Urine Barbiturates Neg Ur Phencyclidine (PCP) Neg U Amphetamines Confirm Pending U Amphetamin/Meth Scrn Pos H U Methamphetamin Confrm Pending MDMA (Ecstasy) Screen Neg U Benzodiazepines Scrn Neg Ur Cocaine Metabolite Neg U Marijuana (THC) Screen Neg Drug Screen Comment Pending SARS-CoV-2 (PCR) Influenza Type A (PCR) Influenza Type B (PCR) RSV (RT-PCR) 11/23/22 11/23/22 11:04 12:01 WBC RBC Hgb POC Hgb Hct POC Hct MCV MCH MCHC RDW Std Deviation RDW Coeff of Saman Plt Count MPV Immature Gran % (Auto) Neut % (Auto) Lymph % (Auto) [place] % (Auto) Eos % (Auto) Baso % (Auto) Neut # (Auto) Lymph # (Auto) [place] # (Auto) Eos # (Auto) Baso # (Auto) Immature Gran # (Auto) POC Sodium Sodium POC Potassium Potassium POC Chloride Chloride Carbon Dioxide POC Total CO2 Anion Gap POC Anion Gap POC BUN BUN Creatinine POC Creatinine Est Cr Clr Drug Dosing Est GFR ( Amer) Est GFR (Non-Af Amer) BUN/Creatinine Ratio Glucose POC Glucose 151 H POC Glucose (other) Estimat Average Glucose Hemoglobin A1c Calcium POC Ioniz Calcium Sly Magnesium Troponin I High Sens 42.1 H TSH Free T4 Urine Color Urine Appearance Urine pH Ur Specific [place] Urine Protein Urine Glucose (UA) Urine Ketones Urine Blood Urine Nitrite Urine Bilirubin Urine Urobilinogen Ur Leukocyte Esterase Urine WBC (Auto) Urine RBC (Auto) U Hyaline Cast (Auto) U Epithel Cells (Auto) Urine Bacteria (Auto) Urine Opiates Screen Ur Methadone, Qual Urine Barbiturates Ur Phencyclidine (PCP) U Amphetamines Confirm U Amphetamin/Meth Scrn U Methamphetamin Confrm MDMA (Ecstasy) Screen U Benzodiazepines Scrn Ur Cocaine Metabolite U Marijuana (THC) Screen Drug Screen Comment SARS-CoV-2 (PCR) Influenza Type A (PCR) Influenza Type B (PCR) RSV (RT-PCR) Medications Administered Current Inpatient Medications Acetaminophen (Acetaminophen 325 Mg Tab) 650 mg PO Q4H PRN PRN Reason: Pain or Fever Stop: 12/22/22 22:47 Dextrose (Dextrose 50% 50 Ml Syringe) 25 - 50 ml IV UD PRN; Protocol PRN Reason: Hypoglycemia Protocol Stop: 12/22/22 22:47 Docusate Sodium (Docusate Sodium 100 Mg Cap) 100 mg PO BID PRN PRN Reason: Constipation Stop: 12/22/22 22:47 Glucagon (Glucagon For Inj 1 Mg Vial) 1 mg SQ UD PRN; Protocol PRN Reason: Hypoglycemia Protocol Stop: 12/22/22 22:47 Glucose (Glucose 40% Gel 15 Gm Tube) 15 - 30 gm PO UD PRN; Protocol PRN Reason: Hypoglycemia Protocol Stop: 12/22/22 22:47 Glucose (Glucose 10 Tab/Tube) 4 - 8 tab PO UD PRN; Protocol PRN Reason: Hypoglycemia Treatment Stop: 12/22/22 22:47 Sodium Chloride (Nss 1000ml) 1,000 mls @ 100 mls/hr IV .Q10H [facility] Stop: 11/24/22 04:47 Last Admin: 11/23/22 09:22 Dose: 100 mls/hr Insulin Aspart (Insulin Aspart Per Unit) 0 units SC ACHS [facility] Stop: 12/22/22 22:47 Last Admin: 11/23/22 13:13 Dose: 1 units Levothyroxine Sodium (Levothyroxine Sodium 175 Mcg Tablet) 175 mcg PO DAILYBB [facility] Stop: 12/23/22 06:29 Last Admin: 11/23/22 06:39 Dose: 175 mcg Miscellaneous (Carbohydrates For Hypoglycemia ) 15 - 30 gm PO UD PRN PRN Reason: Hypoglycemia Protocol Stop: 12/22/22 22:47 Nitroglycerin (Nitroglycerin Sl 0.4 Mg/Tab Tab) 0.4 mg SL Q5M PRN PRN Reason: Chest Pain Stop: 12/22/22 22:47 Polyethylene Glycol (Polyethylene (Miralax) 17 Gm Pack) 17 gm PO DAILY PRN PRN Reason: Constipation Stop: 12/22/22 22:47
--- NOTE | 2022-11-23 15:12 | Electrocardiogram Report ---
Test Reason : Blood Pressure : / mmHG Vent. Rate : 082 BPM Atrial Rate : 082 BPM P-R Int : 128 ms QRS Dur : 078 ms QT Int : 442 ms P-R-T Axes : 047 058 082 degrees QTc Int : 516 ms Normal sinus rhythm Peaked T waves(consider ischemia,hyperkalemia,etc.) Prolonged QT Abnormal ECG When compared with ECG of 22-NOV-2022 13:16, (unconfirmed) No significant change was found Confirmed by Bridger Pineda ([id number]) on 11/23/2022 3:11:58 PM Referred By: REFERRED SELF Confirmed By:Esdras Pineda
--- NOTE | 2022-11-23 15:29 | Electrocardiogram Report ---
Test Reason : Blood Pressure : / mmHG Vent. Rate : 073 BPM Atrial Rate : 073 BPM P-R Int : 130 ms QRS Dur : 068 ms QT Int : 464 ms P-R-T Axes : 014 038 076 degrees QTc Int : 511 ms Normal sinus rhythm Prolonged QT Abnormal ECG When compared with ECG of 22-NOV-2022 13:16, (unconfirmed) QT has shortened T wave amplitude improved Confirmed by Bridger Pineda ([id number]) on 11/23/2022 3:28:58 PM Referred By: REFERRED SELF Confirmed By:Esdras Pineda
--- NOTE | 2022-11-23 15:36 | Communication Note ---
Date of Service: November 23, 2022 By CMS guidelines, a determination that the admission or continued stay is not medically necessary has been made by a member of the UR committee and a ph ysician for this hospital stay, therefore a Code 44 will be completed and the Inpatient admission will be changed to outpatient.
--- NOTE | 2022-11-23 15:37 | Discharge Summary ---
Date of Service November 23, 2022 Admission HPI Per Admitting Provider CHIEF COMPLAINT: Dizziness. HISTORY OF PRESENT ILLNESS: A 51-year-old female with past medical history significant for type 2 diabetes, hypothyroidism, history of COPD, seasonal allergic rhinitis, hypertension, GERD, osteoarthritis of the right hand, ongoing tobacco abuse, smokes half pack a day, neurofibroma of back, history of tonsillar cancer diagnosed in 2013 as per the patient, status post surgery, chemoradiation, currently in remission and the patient follows with [facility] at [place], chronic pain .Patient says because of cancer, she was in lot of pain and was on pain medications and since last 4 years, she is on Suboxone, presents with dizziness. The patient says she was constipated last few days and yesterday, she took milk of magnesia. She had 3 bowel movements and then she was feeling dizzy all night and in the morning, so she came to the ER, found to be hypotensive with fluids the blood pressure improved and dizziness is better. But she has an abnormal EKG, so is the reason for the patient getting admitted. Denies any chest pain, no shortness of breath, no cough, no fevers, no nausea, no abdominal pain, no headache, no blurred visions, no runny nose, no sore throat, no difficulty swallowing, feeling hungry currently, wants to eat. Normal bowel and bladder movements. Denies any blood in her stools or black stools. No hematuria. No swelling in the legs. Otherwise, she is ambulating okay. Admission Exam Per Admitting Provider PHYSICAL EXAMINATION: GENERAL: The patient is of moderate build, not in acute distress. VITAL SIGNS: Temperature 36.8, pulse 67, respiratory rate 14, blood pressure when she came in was 88/62, currently 125/77, oxygen 97% on room air. HEENT: Pupils equal, round and reactive to light. Oral mucosa moist. Absent dentition. NECK: No neck masses seen. CARDIOVASCULAR: S1 and S2 heard. Regular rate and rhythm. No murmur, no gallop. RESPIRATORY SYSTEM: Normal AP diameter. No accessory muscle use. No wheezing, no crackles. ABDOMEN: Soft, bowel sounds present, nontender, no distention. CENTRAL NERVOUS SYSTEM: Alert and oriented. Speech is clear. No facial droo p. Obeys simple commands. Moves extremities. EXTREMITIES: No edema, no erythema. Principal Diagnosis Dizziness Dehydration Abnormal EKG Drug abuse Discharge Data Allergies Allergy/AdvReac Type Severity Reaction Status Date / Time No Known Allergies Allergy Verified 11/22/22 18:04 Consultations 11/22/22 18:39 ED Decision to Admit Stat 11/23/22 08:00 Consult Cardiology Routine Procedures Performed Laboratory Results WBC 4.75 K/ul (4.8-10.8) L 11/23/22 05: RBC 4.23 M/uL (4.20-5.40) 11/23/22 05:27 Hgb 12.9 g/dl (12.0-16.0) D 11/23/22 05:27 POC Hgb 15.0 g/dl (12.0-16.0) 11/22/22 17:43 Hct 37.7 % (37.0-47.0) 11/23/22 05: POC Hct 44 % (37-47) 11/22/22 17:43 MCV 89.1 fL (80.0-100.0) 11/23/22 05: MCH 30.5 pg (25.0-34.0) 11/23/22 05:27 MCHC 34.2 g/dL (32.0-36.0) 11/23/22 05: RDW Std Deviation 40.7 fL (36.4-46.3) 11/23/22 05: RDW Coeff of Saman 12.5 % (11.5-14.5) 11/23/22 05:27 Plt Count 129 K/uL (130-400) L 11/23/22 05: MPV 11.2 fL (9.4-12.4) 11/23/22 05:27 Immature Gran % (Auto) 0.4 % 11/23/22 05: Neut % (Auto) 66.2 % 11/23/22 05: Lymph % (Auto) 23.2 % 11/23/22 05: [place] % (Auto) 6.9 % 11/23/22 05: Eos % (Auto) 2.7 % 11/23/22 05: Baso % (Auto) 0.6 % 11/23/22 05: Neut # (Auto) 3.14 K/uL (1.40-6.50) 11/23/22 05:27 Lymph # (Auto) 1.10 K/uL (1.2-3.4) L 11/23/22 05:27 [place] # (Auto) 0.33 K/uL (0.11-0.59) 11/23/22 05:27 Eos # (Auto) 0.13 K/uL (0-0.50) 11/23/22 05:27 Baso # (Auto) 0.03 K/uL (0-0.2) 11/23/22 05:27 Immature Gran # (Auto) 0.02 K/uL (0.01-0.20) 11/23/22 05:27 POC Sodium 134 mmol/L (135-144) L 11/22/22 17:43 Sodium 137 mmol/L (136-145) 11/23/22 05:27 POC Potassium 4.2 mmol/L (3.3-5.0) 11/22/22 17:43 Potassium 4.0 mmol/L (3.5-5.1) 11/23/22 05:27 POC Chloride 96 mmol/L (101-112) L 11/22/22 17:43 Chloride 104 mmol/L (98-107) 11/23/22 05:27 Carbon Dioxide 29 mmol/L (21-32) 11/23/22 05:27 POC Total CO2 31 mmol/L (24-31) 11/22/22 17:43 Anion Gap 4 (3-11) 11/23/22 05:27 POC Anion Gap 13.0 mmol/L (16-25) L 11/22/22 17:43 POC BUN 28 mg/dl (7-18) H 11/22/22 17:43 BUN 21 mg/dl (6-23) 11/23/22 05:27 Creatinine 0.66 mg/dl (0.6-1.2) D 11/23/22 05:27 POC Creatinine 0.9 mg/dl (0.6-1.3) 11/22/22 17:43 Est Cr Clr Drug Dosing 88.0 ml/min 11/23/22 05:27 Est GFR ( Amer) 120.2 ml/min 11/23/22 05:27 Est GFR (Non-Af Amer) 103.7 ml/min 11/23/22 05:27 BUN/Creatinine Ratio 31.8 (10-20) H 11/23/22 05:27 Glucose 154 mg/dl (70-99(Fasting)) H 11/23/22 05:27 POC Glucose 151 mg/dl (70-99) H 11/23/22 12:01 POC Glucose (other) 215 mg/dl (70-99) H 11/22/22 17:43 Estimat Average Glucose 189 mg/dl 11/23/22 05:27 Hemoglobin A1c 8.2 % (4.5-5.6) H 11/23/22 05:27 Calcium 8.5 mg/dl (8.5-10.1) 11/23/22 05:27 POC Ioniz Calcium Sly 1.13 mmol/l (1.12-1.32) 11/22/22 17:43 Magnesium 1.8 mg/dl (1.7-2.4) 11/23/22 05:27 Total Bilirubin 0.7 mg/dl (0.2-1.0) 11/22/22 13:19 AST 29 U/L (13-39) 11/22/22 13:19 ALT 31 U/L (7-52) 11/22/22 13:19 Alkaline Phosphatase 115 U/L (34-104) H 11/22/22 13:19 Troponin I High Sens 42.1 pg/ml (0-14) H 11/23/22 11:04 Total Protein 7.6 gm/dl (6.0-8.3) 11/22/22 13:19 Albumin 4.3 gm/dl (3.4-5.0) 11/22/22 13:19 Globulin 3.3 gm/dl (2.5-4.0) 11/22/22 13:19 Albumin/Globulin Ratio 1.3 (0.9-2) 11/22/22 13:19 TSH 13.541 uIu/ml (0.300-4.500) H 11/23/22 05:27 Free T4 0.70 ng/dl (0.61-1.60) 11/23/22 05:27 Urine Color Dark Yellow 11/22/22 15:35 Urine Appearance Clear (Clear) 11/22/22 15:35 Urine pH 5.5 (4.5-7.5) 11/22/22 15:35 Ur Specific [place] 1.027 (1.000-1.030) 11/22/22 15:35 Urine Protein Trace (Negative) H 11/22/22 15:35 Urine Glucose (UA) 1+ (Negative) H 11/22/22 15:35 Urine Ketones Negative (Negative) 11/22/22 15:35 Urine Blood Trace (Negative) H 11/22/22 15:35 Urine Nitrite Negative (Negative) 11/22/22 15:35 Urine Bilirubin 1+ (Negative) H 11/22/22 15:35 Urine Urobilinogen Negative (Negative) 11/22/22 15:35 Ur Leukocyte Esterase Negative (Negative) 11/22/22 15:35 Urine WBC (Auto) 1-5 /hpf (0-5) 11/22/22 15:35 Urine RBC (Auto) 0-4 /hpf (0-4) 11/22/22 15:35 U Hyaline Cast (Auto) 10-30 /lpf (0-5) H 11/22/22 15:35 U Epithel Cells (Auto) >30 /lpf (0-5) H 11/22/22 15:35 Urine Bacteria (Auto) Negative (Negative) 11/22/22 15:35 Urine Opiates Screen Neg (Neg) 11/23/22 09:12 Ur Methadone, Qual Neg (Neg) 11/23/22 09:12 Urine Barbiturates Neg (Neg) 11/23/22 09:12 Ur Phencyclidine (PCP) Neg (Neg) 11/23/22 09:12 U Amphetamin/Meth Scrn Pos (Neg) H 11/23/22 09:12 MDMA (Ecstasy) Screen Neg (Neg) 11/23/22 09:12 U Benzodiazepines Scrn Neg (Neg) 11/23/22 09:12 Ur Cocaine Metabolite Neg (Neg) 11/23/22 09:12 U Marijuana (THC) Screen Neg (Neg) 11/23/22 09:12 SARS-CoV-2 (PCR) NEGATIVE (Negative) 11/22/22 17:43 Influenza Type A (PCR) Negative (Neg) 11/22/22 17:43 Influenza Type B (PCR) Negative (Neg) 11/22/22 17:43 RSV (RT-PCR) Negative (Neg) 11/22/22 17:43 Hospital Course (1) Dizziness: Patient is a 51 yr female, who presents with dizziness and hypotension and found to have abnormal ekg. Dizziness Likely due to hypotension/dehydration -ECHO: Moderate concentric LVH. EF 60 to 65%. Left ventricle wall motion is normal. Grade 1 diastolic dysfunction. Right ventricle systolic function is normal. Left atrial size is normal. Right atrial size is normal. Trace aortic regurgitation. Trace mitral regurgitation. BP improved with IV fluids Resume lisinopril as able Abnormal EKG likely due to Drug abuse Prolonged QTc Mild Troponin elevation -ECHO as above -Drug Screen positive for amphetamines Patient admits to using Methamphetamine use Counseled to quit drug use Denies any chest pain, dyspnea Cardiology consulted Troponin trended down Chronic thrombocytopenia No bleeding issues Monitor platelets Hypothyroidism TSH elevated (better when compared to prior studies) Normal free T4 levels Continue levothyroxine Follow-up as outpatient DM II HbA1c 8.2 Hold p.o. meds Continue insulin while hospitalized Monitor BGs H/O Tonsillar cancer S/P surgery, chemo and radiation Follow up with [facility] In remission for 8-9 years. 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 DVT Px: SCDs for now CODE STATUS Full code Total Time Total Time Spent Total Time Spent (In Minutes): 48 minutes Discharge Plan Discharge Items Patient Disposition: Home - Self-Care Reason For Visit: DIZZINESS Discharge Diagnosis: Dizziness Dehydration Abnormal EKG Drug abuse Condition on Discharge: Fair Activity: Per Instructions section Sexual Activity: Wait until after follow-up appointment Non-emergency contact: Primary Care Provider Call non-emergency contact if: you have any medication questions, your symptoms worsen, your pain is concerning for you and you have a fever Follow-up/Referrals: Leodan Estrada DO [Primary Care Provider] - (Date & Time 11/29/2022 1:00 PM Provider Leodan Estrada DO Department Family Practice [facility] ) Diet: Heart Healthy Addtl Attending Provider Instructions: Follow up with your Primary Care Physician on 11/29/2022 1:00 PM Seek immediate medical attention if your symptoms reoccur or worsen Please take all medications as instructed on discharge list below. Please call if you have any questions or problems. You can reach a [facility] hospitalist on duty at [facility] 24 hours a day by calling [phone] Pending Studies at Discharge: No Stand-Alone Forms: My [facility], Smoking Cessation Medications and DC Order Prescriptions: Continued buprenorphine-naloxone 8-2 mg tablet, sublingual 1 tab SUBLINGUAL BID docusate sodium 100 mg Capsule 100 mg PO BID PRN (Reason: Constipation) Qty: 30 0RF polyethylene glycol 3350 [Miralax] 17 gram Powder In Packet 17 g PO DAILY PRN (Reason: Constipation) Qty: 15 0RF levothyroxine 175 mcg Tablet 175 mcg PO QAM Qty: 30 1RF metformin 500 mg tablet extended release 24hr 500 mg PO DAILY Qty: 30 0RF (DME) OneTouch Verio test strips Strip See Rx Instructions .ROUTE .MEDSUPPLY Qty: 50 0RF Rx Instructions: Check Blood glucose levels daily (DME) lancets [OneTouch Delica Lancets] 33 gauge misc See Rx Instructions .ROUTE .MEDSUPPLY Qty: 100 0RF Rx Instructions: Check Blood glucose level sonce daily lisinopril 20 mg tablet 30 mg PO DAILY Discharge Orders: Discharge Order (Routine); Ordered 11/23/22 Ordered By: Nishant Carver/Other Patient Handouts: Managing Type 2 Diabetes, Diabetes: Meal Planning Admission Data Admit Date/Time: 11/22/22 20:00 Attending Provider: Nishant Singh Admit Provider: Karthikeyan Guevara Primary Care Provider: Leodan Estrada Other Providers: Karthikeyan Guevara ; Jason Ortiz
[2022-11-26 09:53] LABS: Amphetamine Urine, Confirm 774 ng/mL (<250); Methamphetamine, Ur Confirm 4980 ng/mL (<250)
== END 2022-11-23 16:36 | disposition home or self-care (01) | DRG 149 ==
LOC: ED 12:56 → 2S 20:00 → SUATTDRO 20:00 → 2S 22:19
DX: I95.9 Hypotension, unspecified; I24.8 Other forms of acute ischemic heart disease; R94.31 Abnormal electrocardiogram [ECG] [EKG]; I10 Essential (primary) hypertension; R42 Dizziness and giddiness; J44.9 Chronic obstructive pulmonary disease, unspecified; E11.9 Type 2 diabetes mellitus without complications; E86.0 Dehydration; F17.210 Nicotine dependence, cigarettes, uncomplicated; Z79.84 Long term (current) use of oral hypoglycemic drugs; Z79.890 Hormone replacement therapy; Z79.899 Other long term (current) drug therapy; K21.9 Gastro-esophageal reflux disease without esophagitis